=== PATIENT | female | born 1995 | race African-American/Black ===

== ENCOUNTER 2023-04-18 15:58 | Emergency (ER) | payer OTHER, SELFPAY ==
[2023-04-18 16:00] VITALS: BP 134/91
[2023-04-18 17:07] LABS: % Basophils 0.3 % (0-2); % Eosinophils 0.3 % (0-6); % Immature Granulocytes 0.3 % (0-0.5); % Lymphocytes 35.6 % (20.5-51.1); % Monocytes 7.6 % (1.7-9.3); % Neutrophils 55.9 % (42.2-75.2); Absolute Lymphocytes 2.4 10^3/uL (1.2-3.4); Absolute Monocytes 0.5 10^3/uL (0.1-0.6); Absolute Neutrophils 3.8 10^3/uL (1.4-6.5); Hematocrit 35.1 % (37.0-47.0); Hemoglobin 11.8 g/dL (12.0-16.0); Mean Corp Hgb Conc. 33.6 g/dL (33.0-37.0); Mean Corpuscular Hgb 28.1 pg (27.0-31.0); Mean Corpuscular Volume 83.6 fL (81.0-99.0); Mean Platelet Volume 10.1 fL (7.4-10.4); Nucleated Red Blood Cells % 0 %; Platelet Count 274 10^3/uL (130-400); Red Cell Dist. Width 14.3 % (11.5-14.5); White Blood Cell Count 6.8 10^3/uL (4.8-10.8)
[2023-04-18 17:17] LABS: HCG, Serum Qualitative Screen Negative
[2023-04-18 17:18] LABS: Chloride 108 mmol/L (98-107); Potassium 4.3 mmol/L (3.5-5.1); Sodium 139 mmol/L (135-145)
[2023-04-18 17:22] LABS: ALT (SGPT) 23 U/L (0-35); AST (SGOT) 45 U/L (14-36); Acetaminophen < 10 ug/ml (10-30); Albumin 4.4 g/dl (3.5-5.0); Alkaline Phosphatase 97 U/L (38-126); Blood Urea Nitrogen 22 mg/dl (7-17); Calcium 9.2 mg/dl (8.4-10.2); Carbon Dioxide 24 mmol/L (22-30); Glucose 86 mg/dl (70-99); Salicylate < 1.0 mg/dl (2.0-20.0); Total Bilirubin 0.6 mg/dl (0.2-1.3); Total Protein 7.4 g/dl (6.3-8.2); eGFR > 60.00
[2023-04-18 17:23] LABS: Alcohol None Detected
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
--- NOTE | 2023-04-18 18:40 | ED.GENMED ---
History of Present Illness
General
Chief Complaint: Substance Abuse
Source: patient and family
Exam Limitations: clinical condition
Time Seen by Provider: 04/18/23 16:17
Travel History
Have you had any contact with someone who has COVID-19?: No
Do you have any symptoms of coronavirus? Fever > 100 degrees, chills, cough, shortness of breath, sore throat, loss of taste or smell, muscle aches, or headache?: No
History of Present Illness
History of Present Illness:
27-year-old female who presents after dad found her not acting right. he suspects she used drugs. pt admits to using 'triple C's' and marijuana. Dad states she is also schizophrenic. He found to joints in containers. The patient states she was
trying to 'tripped balls'. She was try to get high and denies suicide ideation. She denies any other symptoms. She is followed by [facility] Rodriguez
Past History
Past History
ED Past Medical History: Psychiatric (Prior suicide attempt, bipolar, Paranoia, ADHD, ), Other (Substance abuse, UTI, Kidney stones, Anemia, ) and Other (Anemia)
ED Past Surgical History: None
Social History
Tobacco: Non-smoker
Alcohol: Binge drinker
Drug: Marijuana, Cocaine, Narcotics (Heroin) and IVDA
Personal: Single
Living: with family
Employment: Not employed
Family History
Family History: Other (Mother with breast cancer)
Phy Exam
Physical Exam
Physical Exam:
CONSTITUTIONAL Patient alert and oriented to person, place and time. Well-appearing. Vital signs reviewed. Appears intoxicated
HEAD atraumatic, normocephalic.
EYES eyelids normal to inspection, Pupils equally round and reactive to light, Extraocular muscles intact, Conjunctiva normal, Sclera normal.
NECK normal range of motion, Trachea midline, no jugular venous distention.
RESPIRATORY CHEST No respiratory distress noted, Chest expansion equal, Bilateral breath sounds clear.
CARDIOVASCULAR regular rate and rhythm, Heart sounds normal.
ABDOMEN abdomen nontender, Bowel sounds normal. No distention.
BACK normal inspection, no obvious deformities
UPPER EXTREMITY range of motion normal, Motor strength normal, no cyanosis, no edema.
LOWER EXTREMITY range of motion normal, Motor strength normal, no cyanosis, no edema.
NEURO Speech clear but appears mildly intoxicated, No focal motor deficits, Cranial Nerves intact to screening exam.
SKIN skin warm, dry, and normal in color.
Course
Orders/Labs/Results
Orders:
Orders
04/18/23 16:05
Crisis Consult Urgent
Reason for Consult: attempted suicide.
04/18/23 16:17
Urinalysis Reflex To Culture Urgent
Urine Drug Abuse Screen Urgent
04/18/23 16:18
Electrocardiogram (*1) Urgent
Reason for Study: Other
Other Reason for Exam: OD
EKG- Treatment ONCE
Test Result ONCE
04/18/23 16:51
Acetaminophen Urgent
Alcohol Urgent
Complete Blood Count/With Diff Urgent
Comprehensive Metabolic Panel Urgent
HCG, Serum Qualitative Screen Urgent
Salicylate Urgent
04/18/23 17:38
Crisis Consult Urgent
Reason for Consult: overdose
Abnormal Lab Results
04/18/23
16:51
Hgb 11.8 L g/dL
(12.0-16.0)
Hct 35.1 L %
(37.0-47.0)
Chloride 108 H mmol/L
(98-107)
BUN 22 H mg/dl
(7-17)
AST 45 H U/L
(14-36)
Salicylates < 1.0 L mg/dl
(2.0-20.0)
Acetaminophen < 10 L ug/ml
(10-30)
04/18/23 16:51
04/18/23 16:51
Vital Signs
Initial and Last Documented VS:
Initial Vital Signs
Temp Pulse Resp BP Pulse Ox
98.2 F 74 18 134/91 99
04/18/23 16:00 04/18/23 16:00 04/18/23 16:00 04/18/23 16:00 04/18/23 16:00
Last Documented Vital Signs
Temp Pulse Resp BP Pulse Ox
98.2 F 74 18 134/91 99
04/18/23 16:00 04/18/23 16:00 04/18/23 16:00 04/18/23 16:00 04/18/23 16:00
MDM/Problems Addressed
MDM/Problems Addressed:
Chloricidine OD. Marijuana abuse. Chronic schizophrenia
*Pulse Oximetry
Patient hypoxic: no
*EKG
Interpreted by ED Provider?: Yes
Interpretation: normal
Rate: normal
Rhythm: sinus
QRS Pattern: normal QRS
Ischemia: no ischemia
*Adjunct Instructor Interpretation
Rate: normal
Interpretation: normal
*Critical Care Note
Total Time (30-74mins, 75-104mins- exclusive of procedures): Not Applicable
Data Reviewed
Source: patient and family
Patient Management
Discussion with other providers: Other (Discussed with crisis staff who has ensured patient will have follow-up)
Escalation/DeEscalation of care consider admission/obs:
Observed. No significant tachycardia. EKG normal. No anion gap. Okay for discharge with dad will follow-up as outpatient. Patient was try to get high but question when she took these as she is not even tachycardic
ED Attending Note
-
Portions of this chart may have been created with voice recognition software.� Occasional wrong word or��sound alike� substitutions may have occurred due to the inherent limitations of voice recognition software.
Discharge Plan
Departure
Patient Disposition: Home (Routine Discharge)
Date of Disposition: 04/18/23
Time of Disposition: 19:27
Patient with high blood pressure during this ER visit?: No
Discharge Problem:
Substance abuse
Instructions: Drug Misuse and Addiction (DC)
Prescriptions:
No Action
benztropine 1 mg Tablet
1 mg PO DAILY
hydroxyzine pamoate 50 mg Capsule
50 mg PO BIDPRN PRN (Reason: ANTIHISTAMINE)
haloperidol 5 mg Tablet
5 mg PO HS
gabapentin 300 mg Capsule
300 mg PO BID
lamotrigine [Lamictal] 25 mg tablet
25 mg PO ONCE Qty: 30 1RF
Referrals:
Jg Solorzano DO [Family Provider] -
Activity Restrictions/Additional Instructions:
Please see your counselors and psychiatrist in the next 2 to 3 days. Please stop using illicit drugs. Return for change in mentation, weakness of any kind or any other concerns.
Interventions
Interventions:
*Risk Screen - Suicide Last Done: 04/18/23 16:00
*General Assessment Last Done: 04/18/23 16:00
*Neglect/Abuse Screening Last Done: 04/18/23 16:00
ED- Fall Risk Assessment Last Done: 04/18/23 16:49
*ED COVID-19 Vaccine History Last Done: 04/18/23 16:00
ED-Psychological Assessment Last Done: 04/18/23 16:49
[2023-04-18 19:50] VITALS: BP 121/81
== END 2023-04-18 19:50 | disposition home or self-care (01) ==
LOC: EMR 15:58
PROVIDERS: EMERGENCY PHYSICIAN Emergency Medicine; FAMILY PHYSICIAN Family Medicine
DX: F19.10 Other psychoactive substance abuse, uncomplicated (principal)
CPT/HCPCS: 99284; 80053; 80143; 80179; 82077; 84703; 85025; 93005

== ENCOUNTER 2023-05-10 19:27 | Emergency (ER) | payer OTHER, SELFPAY ==
[2023-05-10 19:30] VITALS: BP 144/124
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
[2023-05-10 22:02] VITALS: BP 134/97
== END 2023-05-10 22:09 | disposition home or self-care (01) ==
LOC: EMR 19:27
PROVIDERS: EMERGENCY PHYSICIAN Emergency Medicine
DX: T76.21XA Adult sexual abuse, suspected, initial encounter (principal); R10.2 Pelvic and perineal pain; R03.0 Elevated blood-pressure reading, without diagnosis of hypertension
CPT/HCPCS: 99283

== ENCOUNTER 2023-05-14 23:48 | Emergency (ER) | payer OTHER, SELFPAY ==
[2023-05-14 23:51] VITALS: BP 134/80
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
[2023-05-15 00:44] LABS: Urine Albumin Trace (Neg - Trace); Urine Bilirubin 1+ (Negative); Urine Character Clear (Clear); Urine Color Amber; Urine Glucose Negative (Negative); Urine Ketone Trace (Negative); Urine Leukocyte Trace (Negative); Urine Nitrite Negative (Negative); Urine Occult Blood Negative (Negative); Urine Urobilinogen 1+ (Neg - 1+)
[2023-05-15 00:50] LABS: Amphetamines Negative (Negative); Barbiturates Negative (Negative); Benzodiazepines Negative (Negative); Buprenorphine Negative (Negative); Cocaine Negative (Negative); Marijuana Positive (Negative); Methadone Negative (Negative); Methamphetamines Negative (Negative); Opiates Negative (Negative); Phencyclidine Negative (Negative); Tricyclic Antidepressants Negative (Negative)
[2023-05-15 00:53] LABS: Urine Squamous Cell >30 /LPF (Few)
[2023-05-15 00:55] LABS: ALT (SGPT) 33 U/L (0-35); AST (SGOT) 56 U/L (14-36); Albumin 4.7 g/dl (3.5-5.0); Alkaline Phosphatase 96 U/L (38-126); Blood Urea Nitrogen 19 mg/dl (7-17); Calcium 9.6 mg/dl (8.4-10.2); Carbon Dioxide 28 mmol/L (22-30); Chloride 103 mmol/L (98-107); Glucose 101 mg/dl (70-99); Potassium 3.5 mmol/L (3.5-5.1); Sodium 135 mmol/L (135-145); Total Bilirubin 0.7 mg/dl (0.2-1.3); Total Protein 7.9 g/dl (6.3-8.2); eGFR > 60.00
[2023-05-15 00:56] LABS: Alcohol None Detected; HCG, Serum Qualitative Screen Negative
[2023-05-15 00:58] LABS: Urine Bacteria Moderate (Negative)
[2023-05-15 01:04] LABS: COVID-19 Antigen Negative (Negative)
[2023-05-15 01:12] LABS: % Basophils 0.5 % (0-2); % Eosinophils 0.5 % (0-6); % Immature Granulocytes 1.1 % (0-0.5); % Lymphocytes 20.3 % (20.5-51.1); % Monocytes 6.1 % (1.7-9.3); % Neutrophils 71.5 % (42.2-75.2); Absolute Immature Granulocytes 0.1 10^3/uL (0-0.05); Absolute Lymphocytes 1.8 10^3/uL (1.2-3.4); Absolute Monocytes 0.5 10^3/uL (0.1-0.6); Absolute Neutrophils 6.3 10^3/uL (1.4-6.5); Hematocrit 35.7 % (37.0-47.0); Hemoglobin 11.9 g/dL (12.0-16.0); Mean Corp Hgb Conc. 33.3 g/dL (33.0-37.0); Mean Corpuscular Hgb 27.8 pg (27.0-31.0); Mean Corpuscular Volume 83.4 fL (81.0-99.0); Mean Platelet Volume 10.3 fL (7.4-10.4); Nucleated Red Blood Cells % 0 %; Platelet Count 287 10^3/uL (130-400); Red Blood Cell Count 4.28 10^6/uL (4.20-5.40); White Blood Cell Count 8.8 10^3/uL (4.8-10.8)
[2023-05-15] MEDS: SAPHRIS 2.5 MG SL (01:49)
[2023-05-15 01:54] VITALS: BMI 23.5
[2023-05-15] MEDS: SAPHRIS 5 MG SL (03:30)
[2023-05-15 10:18] VITALS: BP 121/93
--- NOTE | 2023-05-15 11:02 | W.PN.UPDATE ---
Update Note
Progress Note Update
27 y/o woman with history of schizoaffective disorder and extensive psychiatric treatment was in in ED on 302 awaiting placement. She was actively delusional and agitated and was given several doses of Saphris with good effect. I attempted to
complete an evaluation, but she was fast asleep. I will return later to try to interview her. As she has a history of Hoshimoto's Thyroiditis, I have ordered T3, T4 and TSH. Agree with treatment with Saphris.
[2023-05-15 12:06] LABS: Free T3 3.96 pg/ml (2.77-5.27)
[2023-05-15 12:19] LABS: TSH 1.41 uIU/ml (0.47-4.68)
[2023-05-15 13:54] VITALS: BP 112/75
[2023-05-15 16:14] VITALS: BP 122/90
== END 2023-05-15 16:18 ==
LOC: EMR 23:48
PROVIDERS: Clinical Nurse Specialist Family Health; EMERGENCY PHYSICIAN Emergency Medicine
DX: F20.9 Schizophrenia, unspecified (principal)
CPT/HCPCS: 99285; 80053; 80306; 81003; 81015; 82077; 84439; 84443; 84481; 84703; 85025; 87086; 87255; 87811

== ENCOUNTER 2023-06-09 15:02 | Emergency (ER) | payer OTHER, SELFPAY ==
[2023-06-09 15:03] VITALS: BP 126/86
--- NOTE | 2023-06-09 16:20 | ED.GENMED ---
History of Present Illness
General
Chief Complaint: Alcohol Problem
Source: patient
Exam Limitations: none
Time Seen by Provider: 06/09/23 15:34
Nursing documentation reviewed up to this point in time: agreed with
Travel History
Have you had any contact with someone who has COVID-19?: No
Do you have any symptoms of coronavirus? Fever > 100 degrees, chills, cough, shortness of breath, sore throat, loss of taste or smell, muscle aches, or headache?: No
History of Present Illness
History of Present Illness:
Patient presents to ED for medical evaluation, after she was found to be intoxicated, as she was walking out of [facility] by staff. Paramedics confirm that patient was a carrying a jug with alcohol in it, which has been discarded. Upon arrival, patient
is somnolent but easily arousable, and admits to having had alcohol this afternoon. However, denies suicidal or homicidal ideation. Denies headache. Denies chest pain. Denies abdominal pain. Denies recent illness. Denies use of any other
illicit medications. Patient would like her father to be contacted to be driven home.
Past History
Past History
ED Past Medical History: Psychiatric (Prior suicide attempt, bipolar, Paranoia, ADHD, Schizophrenia, Cutter, Overdose), Other (Substance abuse, UTI, Kidney stones, Anemia, Hashimotos Thyroiditis) and Other (Anemia)
ED Past Surgical History: None
Social History
Tobacco: Non-smoker
Alcohol: Binge drinker
Drug: Marijuana, Cocaine, Narcotics (Heroin) and IVDA
Personal: Single
Living: with family
Employment: Not employed
Family History
Family History: Other (Mother with breast cancer)
Review of Systems
Review of Systems
Allergies reviewed?: Yes
All Other Systems: ROS reviewed and negative except as documented in HPI and ROS
Constitutional: Reports no symptoms
EENT: Reports no symptoms
Respiratory: Reports no symptoms
Cardiac: Reports no symptoms
ABD/GI: Reports no symptoms
Musculoskeletal: Reports no symptoms
Skin: Reports no symptoms
Neurological: Reports no symptoms
Phy Exam
Physical Exam
Physical Exam:
Physical Exam
General: no apparent distress, not acutely ill. afebrile
Head: nc/at. eomi
Neck: supple. no meningeal signs.
Heart: s1/s2 regular rate and rhythm, no murmur. equal radial pulses.
Lungs: no acute respiratory distress. clear bilaterally
Abdomen: normal bowel sounds. not tender.
Neuro: alert and oriented. no focal neurological deficits
Skin: no rash
Psychiatric: well kept. interactive and cooperative
Extremities: no edema. no calf tenderness.
Scores
Withdrawal Assessment of Alcohol
Withdrawal Assessment Completed?: Yes
Nausea and Vomiting: No nausea and no vomiting
Tactile Disturbances: None
Tremor: No tremor
Auditory Disturbances: Not present
Paroxysmal Sweats: No sweat visible
Visual Disturbances: Not present
Anxiety: No anxiety, at ease
Headache, Fullness in Head: Not present
Agitation: Normal activity
Orientation and clouding of sensorium: Oriented and can do serial additions
Total CIWA Score: 0
Alcohol Withdrawal Medication Recommendation: Equal to MSAS Score 0-4. Monitor & re-assess q2hrs, NO MEDICATION NEEDED
Course
Vital Signs
Initial and Last Documented VS:
Initial Vital Signs
Temp Pulse Resp BP Pulse Ox
97.9 F 98 18 126/86 98
06/09/23 15:03 06/09/23 15:03 06/09/23 15:03 06/09/23 15:03 06/09/23 15:03
Last Documented Vital Signs
Temp Pulse Resp BP Pulse Ox
97.9 F 98 18 126/86 98
06/09/23 15:03 06/09/23 15:03 06/09/23 15:03 06/09/23 15:03 06/09/23 15:03
MDM/Problems Addressed
MDM/Problems Addressed:
Pt is alert/awake/oriented and walking with steady gait. Will be discharged home to the care of her father.
*Critical Care Note
Total Time (30-74mins, 75-104mins- exclusive of procedures): Not Applicable
ED Attending Note
-
Portions of this chart may have been created with voice recognition software.� Occasional wrong word or��sound alike� substitutions may have occurred due to the inherent limitations of voice recognition software.
Discharge Plan
Departure
Patient Disposition: Home (Routine Discharge)
Patient with high blood pressure during this ER visit?: Yes
Condition: Good
Discharge Problem:
Alcohol intoxication
Instructions: Alcohol Intoxication ED
Prescriptions:
No Action
Unobtainable
0
Referrals:
Jg Solorzano DO [Family Provider] -
Activity Restrictions/Additional Instructions:
As discussed, please follow-up with your primary care physician with any further concerns.
Interventions
Interventions:
*Risk Screen - Suicide Last Done: 06/09/23 17:09
*General Assessment Last Done: 06/09/23 15:03
*Neglect/Abuse Screening Last Done: 06/09/23 17:07
*ED COVID-19 Vaccine History Last Done: 06/09/23 15:03
*Nursing Disposition Last Done: 06/09/23 20:22
ED- Neurological Assessment Last Done: 06/09/23 17:04
ED-Psychological Assessment Last Done: 06/09/23 17:04
Discharge Date and Time
Discharge Date/Time: 06/09/23 20:23
Print Language: KOREAN
== END 2023-06-09 20:23 | disposition home or self-care (01) ==
LOC: EMR 15:02
PROVIDERS: EMERGENCY PHYSICIAN Emergency Medicine; FAMILY PHYSICIAN Family Medicine
DX: F10.929 Alcohol use, unspecified with intoxication, unspecified (principal); R03.0 Elevated blood-pressure reading, without diagnosis of hypertension
CPT/HCPCS: 99283

== ENCOUNTER 2023-06-26 13:42 | Emergency (ER) | payer OTHER, SELFPAY ==
--- NOTE | 2023-06-26 13:56 | ED.GENMED ---
History of Present Illness
General
Chief Complaint: Change in Mental Status
Time Seen by Provider: 06/26/23 13:55
Travel History
Have you had any contact with someone who has COVID-19?: No
Do you have any symptoms of coronavirus? Fever > 100 degrees, chills, cough, shortness of breath, sore throat, loss of taste or smell, muscle aches, or headache?: No
History of Present Illness
History of Present Illness:
HPI: The patient came in by ambulance. Apparently, the patient stopped a speedboat driver and asked for a ride. The speedboat driver noted increased bizarre behavior specimen and she got out of the car, ultimately EMS was called. She arrived here screaming with
nonsensical speech. She has a history of mental illness and substance abuse.
EXAM:
GENERAL: The patient has very bizarre affect continually stating a soft voice 'I love you, I love you'
HEENT: Moist oral mucosa
CARDIOVASCULAR: No murmurs, borderline tachycardic heart rate, regular rhythm, No chest wall tenderness
PULMONARY: No respiratory distress, breath sounds are clear and equal
ABDOMEN: Soft with no peritoneal signs, no tenderness
NEUROLOGIC: Good strength all extremities, no coordination deficits, she is not oriented�she tells me that she is 'in heaven'
PSYCHIATRIC: The patient has extremely poor insight and judgment, she has nonsensical speech
EXTREMITIES: Nontender, no edema, moves all extremities equally
SKIN: No rash, no lesions
TIME OF INITIAL ENCOUNTER: 2 PM
NUMBER AND COMPLEXITY OF PROBLEMS ADDRESSED AT THE ENCOUNTER
� Chronic conditions affecting care: Farzad thyroiditis, alcohol abuse, bipolar disorder/schizophrenia, substance abuse�patient denies
� Acute Exacerbation and/or Progression of Chronic Illness: This is an problem
� Differential Diagnosis includes: Exacerbation of mental illness, polysubstance abuse, viral syndrome, bacteremia
AMOUNT AND/OR COMPLEXITY OF DATA TO BE REVIEWED AND ANALYZED
� I performed an independent evaluation of and my interpretation is:
EKG:
CT:
X-rays:
Laboratory Studies: White count is normal, lactic is 7.3 (repeat is normal), bicarb initially was 14, creatinine is 1.1, UDS is positive for opiates, PCP, and marijuana, alcohol 21
Other:
� Review of other/old records: I reviewed records, the patient has been seen here by [facility] in the past
� Clinical information was obtained by an independent historian: I spoke to EMS
� Prescriptions/Medications Considered but not given:
� Further testing considered but not performed:
RISK OF COMPLICATIONS AND/OR MORBIDITY OR MORTALITY OF PATIENT MANAGEMENT
� Social determinants of health affecting care:
� Discussion with other providers: I initially briefly discussed case with hospitalist as the patient has lactic over 7 however the repeat lactic has cleared therefore no clear admission from a medical standpoint. I discussed
case with [facility] who does not feel the patient needs to be psychiatrically hospitalized�she currently denies SI on reassessment at around 5:30 PM.
� Escalation of care including admission/observation vs risk of discharge considered: This appears to be an exacerbation of psychiatric illness however the patient is febrile and has a lactic of 7. 3 and low bicarb. However she
is febrile but has a normal white blood cell count. The patient was given IV fluids aggressively and repeat lactic is now markedly improved. She does not strike me as being septic. I suspect the majority of her symptoms are related to mental
illness. I have asked [facility] to evaluate patient for evaluation. I spoke to [facility] after their evaluation and does not feel the patient is a threat to herself. As of 6:01 PM, the patient knows that she is at [facility] and has improved
insight. She does already have services through [facility]. Patient markedly improved but was given Zyprexa and Ativan earlier. We are waiting for ride to pick her up.
Past History
Past History
ED Past Medical History: Psychiatric (Prior suicide attempt, bipolar, Paranoia, ADHD, Schizophrenia, Cutter, Overdose), Other (Substance abuse, UTI, Kidney stones, Anemia, Hashimotos Thyroiditis) and Other (Anemia)
ED Past Surgical History: None
Social History
Tobacco: Non-smoker
Alcohol: Binge drinker
Drug: Marijuana, Cocaine, Narcotics (Heroin) and IVDA
Personal: Single
Living: with family
Employment: Not employed
Family History
Family History: Other (Mother with breast cancer)
Phy Exam
Physical Exam
Physical Exam:
See HPI
Course
Orders/Labs/Results
Orders:
Orders
06/26/23 13:53
Cardiac Monitoring- Treatment ONCE
IV Insert/Care/Rem.- Treatment PRN
Pulse Ox/spot Check [RESP] Urgent
Quantity: 1
06/26/23 13:58
Lorazepam [Ativan] 2 mg IM NOW STA
Olanzapine [Zyprexa] 10 mg IM NOW STA
06/26/23 13:59
Acetaminophen Urgent
Alcohol Urgent
Complete Blood Count/With Diff Urgent
Comprehensive Metabolic Panel Urgent
Salicylate Urgent
Lorazepam [Ativan] 2 mg .ROUTE .STK-MED ONE
Olanzapine [Zyprexa Zydis (Orally Disintegrating)] 10 mg .ROUTE .STK-MED ONE
06/26/23 14:04
Sterile Water [Sterile Water For Injection] 10 ml .ROUTE .STK-MED ONE
06/26/23 14:10
Restraints - Violent As Directed
Restraint Type-: Locked-4 point/4 rails
Apply From (date): 06/26/23
Apply from (time): 14:10
Remove (date): 06/26/23
Remove (time): 14:10
06/26/23 14:25
Lactic Acid Urgent
Blood Culture Urgent
KRZYSZTOF Source: Blood/Venous
Specimen Description:
06/26/23 14:27
Electrocardiogram (*1) Urgent
Reason for Study: QTc Monitoring
EKG- Treatment ONCE
06/26/23 14:41
Fentanyl, Urine Urgent
Urinalysis Reflex To Culture Urgent
Date Specimen was Collected: 06/26/23
Time Specimen was Collected: 14:36
Comment: ADDON
Urine Drug Abuse Screen Urgent
Date Specimen was Collected: 06/26/23
Time Specimen was Collected: 14:36
Blood Culture Q30M
KRZYSZTOF Source: Blood/Venous
Specimen Description:
06/26/23 14:52
0.9% Sodium Chloride 1000 ml [Nss] 1,000 ml IV BOLUS
0.9% Sodium Chloride 1000 ml [Nss] 1,000 ml IV BOLUS
0.9% Sodium Chloride 1000 ml [Nss] 1,000 ml IV BOLUS
06/26/23 14:55
1:1 Observation - Suicide/ Violent Behavior As Directed
06/26/23 15:12
Add On- LAB Urgent
Tests Added?: urinalysis reflex urine culture
06/26/23 15:19
Acetaminophen [Tylenol] 1,000 mg PO NOW STA
06/26/23 16:15
CR Chest Portable - 1 View Urgent
Comment:
Reason For Exam: fever
Reason Study Needs to be Portable: Patient Unstable
06/26/23 16:36
Lactic Acid Q4H
Comment: CANCEL 2nd LACTIC ACID IF 1st LACTIC ACID IS LESS THAN 2
06/26/23 17:10
Crisis Consult Urgent
Reason for Consult: psychosis
Abnormal Lab Results
06/26/23 06/26/23 06/26/23
13:59 14:25 14:41
RBC 3.97 L 10^6/uL
(4.20-5.40)
Hgb 11.2 L g/dL
(12.0-16.0)
Hct 33.9 L %
(37.0-47.0)
RDW 14.6 H %
(11.5-14.5)
MPV 10.5 H fL
(7.4-10.4)
Absolute Neuts (auto) 7.4 H 10^3/uL
(1.4-6.5)
Neutrophils % 81.8 H %
(42.2-75.2)
Lymphocytes % 13.1 L %
(20.5-51.1)
Chloride 108 H mmol/L
(98-107)
Carbon Dioxide 14 L* mmol/L
(22-30)
Creatinine 1.1 H mg/dL
(0.6-1.0)
Glucose 171 H mg/dl
(70-99)
Lactic Acid 7.3 H* mmol/L
(0.7-2.0)
AST 49 H U/L
(14-36)
Urine Ketones Trace A
(Negative)
Salicylates < 1.0 L mg/dl
(2.0-20.0)
Urine Opiates Screen Positive H
(Negative)
Acetaminophen < 10 L ug/ml
(10-30)
Ur Phencyclidine Scrn Positive H
(Negative)
U Marijuana (THC) Screen Positive H
(Negative)
06/26/23 13:59
06/26/23 13:59
Vital Signs
Initial and Last Documented VS:
Initial Vital Signs
Temp Pulse Resp BP Pulse Ox
102.1 F H 100 20 126/76 97
06/26/23 14:16 06/26/23 14:16 06/26/23 14:16 06/26/23 14:16 06/26/23 14:16
Last Documented Vital Signs
Temp Pulse Resp BP Pulse Ox
98.0 F 95 13 142/77 96
06/26/23 16:43 06/26/23 16:43 06/26/23 16:43 06/26/23 16:43 06/26/23 16:43
*Critical Care Note
Total Time (30-74mins, 75-104mins- exclusive of procedures): Not Applicable
ED Attending Note
-
Portions of this chart may have been created with voice recognition software.� Occasional wrong word or��sound alike� substitutions may have occurred due to the inherent limitations of voice recognition software.
Discharge Plan
Departure
Patient Disposition: Home (Routine Discharge)
Date of Disposition: 06/26/23
Time of Disposition: 17:14
Patient with high blood pressure during this ER visit?: Yes
Discharge Problem:
Psychosis
Instructions: Acute Psychosis (DC)
Prescriptions:
No Action
hydroxyzine pamoate 50 mg Capsule
50 mg PO BID
lamotrigine 25 mg Tablet
25 mg PO DAILY
benztropine 1 mg Tablet
1 mg PO DAILY
metformin 500 mg tablet extended release 24 hr
500 mg PO DAILY
olanzapine 20 mg Tablet
20 mg PO DAILY
Vraylar 3 mg Capsule
3 mg PO DAILY
Referrals:
UNKNOWN - PT NOT,INTERVIEWE [Family Provider] -
Activity Restrictions/Additional Instructions:
Follow-up with your psychiatrist/[facility]. Return here if worse. No driving today.
Interventions
Interventions:
*Risk Screen - Suicide Last Done: 06/26/23 15:42
*General Assessment Last Done: 06/26/23 15:42
*Neglect/Abuse Screening Last Done: 06/26/23 15:42
*ED COVID-19 Vaccine History Last Done: 06/26/23 15:42
ED- Neurological Assessment Last Done: 06/26/23 16:59
Discharge Date and Time
Print Language: PORTUGUESE
[2023-06-26] MEDS: ATIVAN 2 MG IM (14:03)
[2023-06-26] MEDS: ZYPREXA 10 MG IM (14:05)
[2023-06-26 14:06] LABS: % Basophils 0.3 % (0-2); % Eosinophils 0.2 % (0-6); % Immature Granulocytes 0.2 % (0-0.5); % Lymphocytes 13.1 % (20.5-51.1); % Monocytes 4.4 % (1.7-9.3); % Neutrophils 81.8 % (42.2-75.2); Absolute Lymphocytes 1.2 10^3/uL (1.2-3.4); Absolute Monocytes 0.4 10^3/uL (0.1-0.6); Absolute Neutrophils 7.4 10^3/uL (1.4-6.5); Hematocrit 33.9 % (37.0-47.0); Hemoglobin 11.2 g/dL (12.0-16.0); Mean Corpuscular Hgb 28.2 pg (27.0-31.0); Mean Corpuscular Volume 85.4 fL (81.0-99.0); Mean Platelet Volume 10.5 fL (7.4-10.4); Nucleated Red Blood Cells % 0 %; Platelet Count 291 10^3/uL (130-400); Red Blood Cell Count 3.97 10^6/uL (4.20-5.40); Red Cell Dist. Width 14.6 % (11.5-14.5)
[2023-06-26 14:16] VITALS: BP 126/76
[2023-06-26 14:45] LABS: ALT (SGPT) 28 U/L (0-35); AST (SGOT) 49 U/L (14-36); Acetaminophen < 10 ug/ml (10-30); Albumin 4.8 g/dl (3.5-5.0); Alcohol 21 mg/dl; Alkaline Phosphatase 85 U/L (38-126); Blood Urea Nitrogen 17 mg/dl (7-17); Calcium 9.9 mg/dl (8.4-10.2); Carbon Dioxide 14 mmol/L (22-30); Chloride 108 mmol/L (98-107); Glucose 171 mg/dl (70-99); Potassium 3.7 mmol/L (3.5-5.1); Salicylate < 1.0 mg/dl (2.0-20.0); Sodium 138 mmol/L (135-145); Total Bilirubin 0.4 mg/dl (0.2-1.3); Total Protein 7.9 g/dl (6.3-8.2); eGFR > 60.00
[2023-06-26 14:51] LABS: Lactic Acid 7.3 mmol/L (0.7-2.0)
[2023-06-26 15:07] LABS: Marijuana Positive (Negative); Opiates Positive (Negative)
[2023-06-26 15:08] LABS: Amphetamines Negative (Negative); Barbiturates Negative (Negative); Benzodiazepines Negative (Negative); Buprenorphine Negative (Negative); Cocaine Negative (Negative); Methadone Negative (Negative); Methamphetamines Negative (Negative); Phencyclidine Positive (Negative); Tricyclic Antidepressants Negative (Negative)
[2023-06-26] MEDS: NSS 1000 IV ×3 (15:11→15:24)
[2023-06-26 15:21] LABS: Fentanyl, Urine Negative (Negative); Urine Albumin Trace (Neg - Trace); Urine Bilirubin Negative (Negative); Urine Character Clear (Clear); Urine Color Yellow; Urine Glucose Negative (Negative); Urine Ketone Trace (Negative); Urine Leukocyte Negative (Negative); Urine Nitrite Negative (Negative); Urine Occult Blood Negative (Negative); Urine Specific Gravity 1.025 (<1.030); Urine Urobilinogen Negative (Neg - 1+)
--- NOTE | 2023-06-26 15:33 | PHANOTE ---
06/26/2023, med rec tech, pt. obtunded at time of interview; used pharmacy fill records and [facility] records from 05/04/2023 to compile a list of pt.'s meds.
[2023-06-26] MEDS: TYLENOL 1000 MG PO (15:37)
[2023-06-26 15:41] VITALS: BP 133/85
--- NOTE | 2023-06-26 15:50 | EDRN ---
Unable to do a proper MSAS on patient. Patient has a history of schizophrenia and is actively hallucinating. Patient also came to the hospital with a fever and tachycardia. Assessment would show a false positive. Will monitor patient closely.
[2023-06-26 16:00] VITALS: BP 142/77
--- NOTE | 2023-06-26 16:22 | EDRN ---
Patient removed from restraints at 1600.
[2023-06-26 16:43] VITALS: BP 142/77
[2023-06-26 16:58] LABS: Lactic Acid 0.9 mmol/L (0.7-2.0)
[2023-06-26 17:00] VITALS: BP 95/77
[2023-06-26 18:00] VITALS: BP 119/85
== END 2023-06-26 18:41 | disposition home or self-care (01) ==
LOC: EMR 13:42
PROVIDERS: EMERGENCY PHYSICIAN Emergency Medicine
DX: F23 Brief psychotic disorder (principal); F31.9 Bipolar disorder, unspecified; F22 Delusional disorders; F90.9 Attention-deficit hyperactivity disorder, unspecified type; D64.9 Anemia, unspecified; E06.3 Autoimmune thyroiditis; Z80.3 Family history of malignant neoplasm of breast; Z87.440 Personal history of urinary (tract) infections; Z87.442 Personal history of urinary calculi; Z91.51 Personal history of suicidal behavior
CPT/HCPCS: 99283; 96372; 96360; 71045; 76700; 80053; 80143; 80179; 80306; 80307; 81003; 82077; 82962; 83605; 85025; 87040; 93005; J2358

== ENCOUNTER 2023-06-26 22:08 | Emergency (ER) | payer OTHER, SELFPAY ==
[2023-06-26 22:16] VITALS: BP 128/91
[2023-06-27 00:02] LABS: Glucose - Point of Care 76 mg/dl (70-99)
[2023-06-27 05:10] LABS: ALT (SGPT) 72 U/L (0-35); AST (SGOT) 329 U/L (14-36); Acetaminophen < 10 ug/ml (10-30); Albumin 4.3 g/dl (3.5-5.0); Alkaline Phosphatase 85 U/L (38-126); Blood Urea Nitrogen 11 mg/dl (7-17); Calcium 9.1 mg/dl (8.4-10.2); Carbon Dioxide 23 mmol/L (22-30); Chloride 109 mmol/L (98-107); Glucose 79 mg/dl (70-99); Potassium 3.5 mmol/L (3.5-5.1); Salicylate < 1.0 mg/dl (2.0-20.0); Sodium 136 mmol/L (135-145); Total Bilirubin 0.8 mg/dl (0.2-1.3); Total Protein 7.2 g/dl (6.3-8.2); eGFR > 60.00
[2023-06-27 05:17] LABS: Alcohol None Detected
--- NOTE | 2023-06-27 05:48 | ED.GENMED ---
History of Present Illness
<Elenita Kumar DO - Last Filed: 06/27/23 06:12>
General
Chief Complaint: Psychiatric Problem
Source: patient, ambulance crew and previous hospital records (ED visit from yesterday evening)
Exam Limitations: none
Time Seen by Provider: 06/27/23 00:40
Travel History
Have you had any contact with someone who has COVID-19?: Unable to Answer
Do you have any symptoms of coronavirus? Fever > 100 degrees, chills, cough, shortness of breath, sore throat, loss of taste or smell, muscle aches, or headache?: Unable to Answer
History of Present Illness
History of Present Illness:
This is a 27-year-old woman who has history of psychiatric disorder follows with [facility] services. She was evaluated in this ED yesterday afternoon evening when she was brought into the ED by EMS after bystanders noted bizarre
behavior. Initially upon arrival to the ED yesterday she was screaming with nonsensical speech. Sedated with Zyprexa and Ativan IM.
Initial chemistries were concerning for significant acidosis and lactic acidosis, patient noted to be febrile at 102 �F. Aggressive treated with IV fluids and repeated labs were markedly improved/normalized.
Alcohol level at that time was low at 21. UDS positive for opiates, PCP and THC.
She was evaluated by the [facility] and found to be stable for discharge to home, no indication for acute hospitalization.
She was discharged yesterday evening and is brought back to the ED via EMS when she was found wandering about town.
According to EMS patient has remained cooperative, once positioned onto the stretcher she has closed her eyes and is refusing to open her eyes, refusing to speak.
There appears no evidence of trauma.
Past History
<Elenita Kumar DO - Last Filed: 06/27/23 06:12>
Past History
ED Past Medical History: Psychiatric (Prior suicide attempt, bipolar, Paranoia, ADHD, Schizophrenia, Cutter, Overdose), Other (Substance abuse, UTI, Kidney stones, Anemia, Hashimotos Thyroiditis) and Other (Anemia)
ED Past Surgical History: None
Social History
Tobacco: Non-smoker
Alcohol: Binge drinker
Drug: Marijuana, Cocaine, Narcotics (Heroin) and IVDA
Personal: Single
Living: with family
Employment: Not employed
Family History
Family History: Other (Mother with breast cancer)
Phy Exam
<Elenita Kumar DO - Last Filed: 06/27/23 06:12>
Physical Exam
Physical Exam:
GENERAL: 27-year-old female appears her stated age, now awake and alert, cooperative, offers no complaints. Sitting at edge of stretcher.
EYE: pupils equal and reactive. anicteric. The head is normocephalic, atraumatic.
NECK: Supple, nontender, no meningismus, no significant adenopathy.
ENT: oral mucosa is moist. No rhinorrhea.
CARDIAC: Regular rate and rhythm. no murmur.
LUNGS: Clear breath sounds bilaterally, no acute respiratory distress, no wheezes/rales/rhonchi
ABDOMEN: Soft, nondistended, without focal tenderness, no r/g, no cvat. normoactive BS.
NEUROLOGICAL: Alert and oriented x3, no focal neuro deficits. Gait is palacios and steady.
SKIN: Warm and dry, normal color, skin intact. No rash.
MUSCULOSKELETAL: No C/C/E. peripheral pulses are full and equal b/l. No palpable tenderness.
PSYCH: Significantly blunted affect, somewhat guarded. Cooperative.
Course
<Elenita Kumar DO - Last Filed: 06/27/23 06:12>
Orders/Labs/Results
Orders:
Orders
06/27/23 04:41
Acetaminophen Urgent
Alcohol Urgent
Comprehensive Metabolic Panel Urgent
Salicylate Urgent
06/27/23 06:05
US Abdomen Complete/Upper Urgent
Comment:
Reason For Exam: elevated LFT's
06/27/23 06:06
PSYCHIATRY CONSULT Urgent
Consulting Provider: Arjun Myrick
Was physician already notified: Yes
Abnormal Lab Results
06/27/23
04:41
Chloride 109 H mmol/L
(98-107)
AST 329 H U/L
(14-36)
ALT 72 H U/L
(0-35)
Salicylates < 1.0 L mg/dl
(2.0-20.0)
Acetaminophen < 10 L ug/ml
(10-30)
06/27/23 04:41
Vital Signs
Initial and Last Documented VS:
Initial Vital Signs
Temp Pulse Resp BP Pulse Ox
98.0 F 92 16 128/91 96
06/26/23 22:16 06/26/23 22:16 06/26/23 22:16 06/26/23 22:16 06/26/23 22:16
Last Documented Vital Signs
Temp Pulse Resp BP Pulse Ox
99.4 F 81 16 117/79 100
06/27/23 07:36 06/27/23 07:36 06/27/23 07:36 06/27/23 07:36 06/27/23 07:36
Datlt;Mac Tsai DO - Last Filed: 06/28/23 06:00>
Orders/Labs/Results
Orders:
Orders
06/27/23 04:41
Acetaminophen Urgent
Alcohol Urgent
Comprehensive Metabolic Panel Urgent
Salicylate Urgent
06/27/23 06:05
US Abdomen Complete/Upper Urgent
Comment:
Reason For Exam: elevated LFT's
06/27/23 06:06
PSYCHIATRY CONSULT Urgent
Consulting Provider: Arjun Myrick
Was physician already notified: Yes
Abnormal Lab Results
06/27/23
04:41
Chloride 109 H mmol/L
(98-107)
AST 329 H U/L
(14-36)
ALT 72 H U/L
(0-35)
Salicylates < 1.0 L mg/dl
(2.0-20.0)
Acetaminophen < 10 L ug/ml
(10-30)
06/27/23 04:41
Vital Signs
Initial and Last Documented VS:
Initial Vital Signs
Temp Pulse Resp BP Pulse Ox
98.0 F 92 16 128/91 96
06/26/23 22:16 06/26/23 22:16 06/26/23 22:16 06/26/23 22:16 06/26/23 22:16
Last Documented Vital Signs
Temp Pulse Resp BP Pulse Ox
99.4 F 81 16 117/79 100
06/27/23 07:36 06/27/23 07:36 06/27/23 07:36 06/27/23 07:36 06/27/23 07:36
<Elenita Kumar, - Last Filed: 06/27/23 06:12>
MDM/Problems Addressed
Differential Diagnosis Includes:
Patient returns via EMS after apparently wandering about the streets in [facility].
Noted to be acutely agitated and psychotic yesterday afternoon requiring IM Zyprexa and Ativan. She was also noted to be febrile yesterday with initial labs concerning for significant lactic acidosis which cleared/normalized after IV fluids
She remains afebrile.
Offers no complaints.
There is significant concern for ongoing psychiatric issues, disorganized thought processes versus substance use disorder causing bizarre behavior prompting repeated EMS notification and return to the ED.
Will repeat chemistries, reassess alcohol, salicylate and acetaminophen.
Thus far patient remains cooperative and has not required sedation.
Will plan for psychiatrist consult in the a.m.
Chronic conditions affecting care: Psychiatric illness
<Mac Voss Eulalio, DO - Last Filed: 06/28/23 06:00>
*Critical Care Note
Total Time (30-74mins, 75-104mins- exclusive of procedures): Not Applicable
<Elenita Kumar DO - Last Filed: 06/27/23 06:12>
Update Note
Update Note:
Labs reveal moderately elevated AST of 329, ALT is trended up mildly to 72. Normal bilirubin and alkaline phosphatase. Chemistries are otherwise unremarkable with no acidosis. She remains afebrile and continues to deny abdominal pain.
Acetaminophen and salicylates are again negative. EtOH is negative.
Due to uptrend in LFTs and reported fever yesterday we will check abdominal ultrasound assess for potential cholecystitis/cholelithiasis.
Will also plan for psychiatrist consult this morning.
Patient remains cooperative.
<Mac Voss Eulalio DO - Last Filed: 06/28/23 06:00>
Update Note
Update Note:
Labs reveal moderately elevated AST of 329, ALT is trended up mildly to 72. Normal bilirubin and alkaline phosphatase. Chemistries are otherwise unremarkable with no acidosis. She remains afebrile and continues to deny abdominal pain.
Acetaminophen and salicylates are again negative. EtOH is negative.
Due to uptrend in LFTs and reported fever yesterday we will check abdominal ultrasound assess for potential cholecystitis/cholelithiasis.
Will also plan for psychiatrist consult this morning.
Patient remains cooperative.
ED Attending Note
<Elenita Kumar, DO - Last Filed: 06/27/23 06:12>
-
Portions of this chart may have been created with voice recognition software.� Occasional wrong word or��sound alike� substitutions may have occurred due to the inherent limitations of voice recognition software.
<Mac Tsai, DO - Last Filed: 06/28/23 06:00>
ED Attending Note
ED Attending Note:
I spoke to Dr. Love outpatient management.
Discharge Plan
Departure
Patient Disposition: Home (Routine Discharge)
Date of Disposition: 06/27/23
Time of Disposition: 12:55
Patient with high blood pressure during this ER visit?: Yes
Discharge Problem:
Mental health disorder
Prescriptions:
No Action
hydroxyzine pamoate 50 mg Capsule
50 mg PO BID
lamotrigine 25 mg Tablet
25 mg PO DAILY
benztropine 1 mg Tablet
1 mg PO DAILY
metformin 500 mg tablet extended release 24 hr
500 mg PO DAILY
olanzapine 20 mg Tablet
20 mg PO DAILY
Vraylar 3 mg Capsule
3 mg PO DAILY
Referrals:
UNKNOWN - PT NOT,INTERVIEWE [Family Provider] -
Activity Restrictions/Additional Instructions:
You were evaluated by crisis and by psychiatry�the psychiatrist, Dr. Luna, recommends continued outpatient management. Return here if worse. Continue your medication.
Interventions
Interventions:
*Risk Screen - Suicide Last Done: 06/26/23 23:30
*General Assessment Last Done: 06/26/23 22:16
*Neglect/Abuse Screening Last Done: 06/26/23 23:30
ED- Fall Risk Assessment Last Done: 06/26/23 22:57
*ED COVID-19 Vaccine History Last Done: 06/26/23 22:16
*Nursing Disposition Last Done: 06/27/23 13:01
ED-Psychological Assessment Last Done: 06/27/23 07:37
Discharge Date and Time
Discharge Date/Time: 06/27/23 13:02
Print Language: PERSIAN
[2023-06-27 07:36] VITALS: BP 117/79
--- NOTE | 2023-06-27 11:00 | CS.PSYCHR ---
Consult Summary - Psychiatry
-
Pt 27 yo female with history of substance use and Schizoaffective d/o, brought in by EMS after reportedly found wandering around town. Pt had been brought in yesterday 06/25, after asking someone for ride and acting in bizarre/disorganized manner.
Pt was given Zyprexa and Ativan yesterday. UDS 06/25 was positive for Opiate, PCP, THC. Today, pt is alert, making eye contact, asking to be allowed to call her father. Pt denies feeling unsafe, states she would like to return home. Pt shows no
overt signs of acute psychosis or mood disturbance, no agitation.
Psych Hx: followed by [facility], hx of PHP at [facility], past hx of self injury 2016
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
PMH: UTI, Kidney stones, Anemia, Farzad's Thyroiditis, Anemia
SH: single, living with family, unemployed
MSE: alert, oriented, calm, guarded. Limited response to questions, repeatedly asking to call her father. No agitation, no signs of acute mood disturbance or psychosis
Imp: Schizoaffective d/o by hx, appears to be at or near baseline mental state
Polysubstance use- opiate, THC, alcohol, + for PCP(could be false positive from psychotropic meds)
Rec: Return to Outpatient treatment; has intensive psychiatric follow-up with [facility]
--- NOTE | 2023-06-27 13:01 | EDRN ---
Discharge instructions reviewed with patient and her ACT assistant case manager. Verbalized understanding.
== END 2023-06-27 13:02 | disposition home or self-care (01) ==
LOC: EMR 22:08
PROVIDERS: CONSULT PHYSICIAN Psychiatry & Neurology Psychiatry; EMERGENCY PHYSICIAN Emergency Medicine
DX: F31.9 Bipolar disorder, unspecified (principal); F22 Delusional disorders; F90.9 Attention-deficit hyperactivity disorder, unspecified type; D64.9 Anemia, unspecified; E06.3 Autoimmune thyroiditis; F20.9 Schizophrenia, unspecified; Z80.3 Family history of malignant neoplasm of breast; Z87.440 Personal history of urinary (tract) infections; Z87.442 Personal history of urinary calculi; Z91.51 Personal history of suicidal behavior
CPT/HCPCS: 99284; 76700; 80053; 80143; 80179; 82077; 82962

== ENCOUNTER 2023-07-05 20:56 | Emergency (ER) | payer OTHER, SELFPAY ==
[2023-07-05 21:00] VITALS: BP 126/93
[2023-07-05 21:03] VITALS: BP 126/93
[2023-07-05 21:21] VITALS: BMI 29.7
--- NOTE | 2023-07-05 21:41 | ED.GENMED ---
History of Present Illness
General
Chief Complaint: Overdose Unintentional
Source: patient
Exam Limitations: none
Time Seen by Provider: 07/05/23 21:07
Nursing documentation reviewed up to this point in time: agreed with
Travel History
Have you had any contact with someone who has COVID-19?: No
Do you have any symptoms of coronavirus? Fever > 100 degrees, chills, cough, shortness of breath, sore throat, loss of taste or smell, muscle aches, or headache?: No
History of Present Illness
History of Present Illness:
Patient with history of bipolar disorder, drug abuse, and alcoholism, presents to ED after she was found inside the house, unresponsive by her father who called 911. When medics arrived at scene, patient was found to be in respiratory distress and
was given Narcan 4 mg which woke the patient up immediately. Patient complained of nausea immediately afterwards, and was given Zofran with relief in symptoms. Upon arrival, patient is alert, awake, and oriented, and without any distress. Patient
admits to having used 1 bag of heroin along with Percocet tonight, as she is already scheduled for an outpatient evaluation/treatment tomorrow morning. Denies suicidal ideation. Denies use of any other illicit medications.
Past History
Past History
ED Past Medical History: Psychiatric (Prior suicide attempt, bipolar, Paranoia, ADHD, Schizophrenia, Cutter, Overdose), Other (Substance abuse, UTI, Kidney stones, Anemia, Hashimotos Thyroiditis) and Other (Anemia)
ED Past Surgical History: None
Social History
Tobacco: Non-smoker
Alcohol: Binge drinker
Drug: Marijuana, Cocaine, Narcotics (Heroin) and IVDA
Personal: Single
Living: with family
Employment: Not employed
Family History
Family History: Other (Mother with breast cancer)
Review of Systems
Review of Systems
Allergies reviewed?: Yes
All Other Systems: ROS reviewed and negative except as documented in HPI and ROS
Constitutional: Reports no symptoms; Denies fever or chills
EENT: Reports no symptoms
Respiratory: Reports no symptoms
Cardiac: Reports no symptoms
ABD/GI: Reports nausea
Musculoskeletal: Reports no symptoms
Skin: Reports no symptoms
Neurological: Reports no symptoms
Psychiatric: Denies suicidal
Phy Exam
Physical Exam
Physical Exam:
Physical Exam
General: no apparent distress, not acutely ill. afebrile
Head: nc/at. eomi. perrla
Neck: supple. no meningeal signs.
Heart: tachycardic, no murmur. equal radial pulses.
Lungs: no acute respiratory distress. clear bilaterally
Abdomen: normal bowel sounds. not tender.
Neuro: alert and oriented. no focal neurological deficits
Skin: no rash
Psychiatric: well kept. interactive and cooperative
Extremities: no edema. no calf tenderness.
Course
Vital Signs
Initial and Last Documented VS:
Initial Vital Signs
Temp Pulse Resp BP Pulse Ox
97.7 F 96 14 126/93 99
07/05/23 21:00 07/05/23 21:00 07/05/23 21:00 07/05/23 21:00 07/05/23 21:00
Last Documented Vital Signs
Temp Pulse Resp BP Pulse Ox
97.7 F 109 28 120/78 98
07/05/23 21:00 07/05/23 22:15 07/05/23 22:15 07/05/23 22:00 07/05/23 23:59
MDM/Problems Addressed
MDM/Problems Addressed:
Patient remains alert, awake, and oriented, and hemodynamically stable during observation. Patient will be discharged home in stable condition, to the care of her father who will observe the patient closely. Patient will follow-up with outpatient
evaluation/treatment tomorrow morning, as scheduled.
*Critical Care Note
Total Time (30-74mins, 75-104mins- exclusive of procedures): Not Applicable
ED Attending Note
-
Portions of this chart may have been created with voice recognition software.� Occasional wrong word or��sound alike� substitutions may have occurred due to the inherent limitations of voice recognition software.
Discharge Plan
Departure
Patient Disposition: Home (Routine Discharge)
Date of Disposition: 07/05/23
Time of Disposition: 22:49
Patient with high blood pressure during this ER visit?: Yes
Discharge Problem:
Opioid overdose
Instructions: Opioid Overdose (DC)
Prescriptions:
New
naloxone [Narcan] 4 mg/actuation spray,non-aerosol
4 mg intranasal DIRECTED Qty: 2 0RF
No Action
metformin 500 mg tablet extended release 24 hr
500 mg PO DAILY
olanzapine 20 mg Tablet
20 mg PO DAILY
Referrals:
Jg Solorzano DO [Family Provider] -
Activity Restrictions/Additional Instructions:
As discussed, please follow-up with outpatient treatment team tomorrow morning, for further evaluation and treatment.
Interventions
Interventions:
*Risk Screen - Suicide Last Done: 07/05/23 21:00
*General Assessment Last Done: 07/05/23 21:00
*Neglect/Abuse Screening Last Done: 07/05/23 21:00
ED- Fall Risk Assessment Last Done: 07/05/23 21:00
*ED COVID-19 Vaccine History Last Done: 07/05/23 21:00
*Nursing Disposition Last Done: 07/05/23 23:59
ED- Cardiac Assessment Last Done: 07/05/23 21:14
ED- Neurological Assessment Last Done: 07/05/23 21:22
ED-Psychological Assessment Last Done: 07/05/23 21:14
ED- Pulmonary Assessment Last Done: 07/05/23 21:22
Discharge Date and Time
Discharge Date/Time: 07/05/23 23:00
Print Language: CITIZEN [place]
[2023-07-05 22:00] VITALS: BP 120/78
== END 2023-07-05 23:00 | disposition home or self-care (01) ==
LOC: EMR 20:56
PROVIDERS: EMERGENCY PHYSICIAN Emergency Medicine; FAMILY PHYSICIAN Family Medicine
DX: T40.2X1A Poisoning by other opioids, accidental (unintentional), initial encounter (principal); F31.9 Bipolar disorder, unspecified; R03.0 Elevated blood-pressure reading, without diagnosis of hypertension
CPT/HCPCS: 99282

== ENCOUNTER 2023-11-27 22:32 | Emergency (ER) | payer OTHER, SELFPAY ==
[2023-11-27 22:33] VITALS: BP 121/86
--- NOTE | 2023-11-27 22:49 | ED.GENMED ---
History of Present Illness
General
Chief Complaint: Crisis Evaluation
Source: patient and police
Exam Limitations: none
Time Seen by Provider: 11/27/23 22:41
History of Present Illness
History of Present Illness:
See MDM
Past History
Past History
ED Past Medical History: Psychiatric (Prior suicide attempt, bipolar, Paranoia, ADHD, Schizophrenia, Cutter, Overdose), Other (Substance abuse, UTI, Kidney stones, Anemia, Hashimotos Thyroiditis) and Other (Anemia)
ED Past Surgical History: None
Social History
Tobacco: Non-smoker
Alcohol: Binge drinker
Drug: Marijuana, Cocaine, Narcotics (Heroin) and IVDA
Personal: Single
Living: with family
Employment: Not employed
Family History
Family History: Other (Mother with breast cancer)
Phy Exam
Physical Exam
Physical Exam:
See MDM
Course
Orders/Labs/Results
Orders:
Orders
11/27/23 22:48
Crisis Consult Urgent
Reason for Consult: 302
Haloperidol Lactate [Haldol] 5 mg IM NOW STA
Lorazepam [Ativan] 2 mg IV NOW STA
Test Result ONCE
11/27/23 23:00
One to One Observation - Suicide/Violent [1:1 Observation - Suicide/ Violent Behavior] As Directed
11/27/23 23:07
Complete Blood Count/With Diff Urgent
Comprehensive Metabolic Panel Urgent
Fentanyl, Urine Urgent
HCG, Serum Qualitative Screen Urgent
Urinalysis Reflex To Culture Urgent
Date Specimen was Collected: 11/27/23
Time Specimen was Collected: 23:02
Urine Drug Abuse Screen Urgent
Date Specimen was Collected: 11/27/23
Time Specimen was Collected: 23:02
Urine Microscopic Reflex Cult Urgent
Urine Culture Urgent
[id number] Source: U
Specimen Description:
Date Specimen was Collected: 11/27/23
Time Specimen was Collected: 23:02
11/28/23 00:03
Ketorolac [Toradol] 30 mg IM NOW STA
Abnormal Lab Results
11/27/23
23:07
Hgb 11.5 L g/dL
(12.0-16.0)
Hct 35.1 L %
(37.0-47.0)
MCV 80.3 L fL
(81.0-99.0)
MCH 26.3 L pg
(27.0-31.0)
MCHC 32.8 L g/dL
(33.0-37.0)
MPV 10.5 H fL
(7.4-10.4)
BUN 20 H mg/dl
(7-17)
Glucose 108 H mg/dl
(70-99)
AST 43 H U/L
(14-36)
Urine Ketones Trace A
(Negative)
Ur Occult Blood Reflex 4+ A
(Negative)
Urine Bilirubin 1+ A
(Negative)
Leukocyte Esterase Rfl 2+ A
(Negative)
Urine RBC >100 A /HPF
(0-2)
Urine WBC (Reflex) 11-15 A /HPF
(0-5)
Urine Bacteria (Reflex) Few A
(Negative)
Ur Buprenorphine Positive H
(Negative)
11/27/23 23:07
11/27/23 23:07
Vital Signs
Initial and Last Documented VS:
Initial Vital Signs
Temp Pulse Resp BP Pulse Ox
98 F 122 14 121/86 95
11/27/23 22:33 11/27/23 22:33 11/27/23 22:33 11/27/23 22:33 11/27/23 22:33
Last Documented Vital Signs
Temp Pulse Resp BP Pulse Ox
98 F 122 14 121/86 95
11/27/23 22:33 11/27/23 22:33 11/27/23 22:33 11/27/23 22:33 11/27/23 22:33
MDM/Problems Addressed
Differential Diagnosis Includes:
HPI and MDM Narrative:
28-year-old female presenting in police custody for a 302. Patient was brought in by her father earlier in the day but she left screaming because she did not want to be evaluated. The 302 was eventually petitioned by her father and police were
called to pick her up to bring her to the hospital. The 302 indicated that she has had paranoia, medication noncompliance and reckless behavior. Patient does acknowledge that she has not been taking her medicine but she has poor insight to her
mental health. She is unsure of her diagnoses and unsure of the medication she should be taking. On exam, patient appears guarded and paranoid. Patient placed on a one-to-one and will provide Haldol and Ativan
Physical exam
General: Fidgety, guarded, sitting in bed
HEENT: protecting airway
Neck: supple
CV: No evidence of cyanosis
Resp: No accessory muscle use
Abd: Non-distended
Extremities: No deformities
Neuro: alert
Psych: Flat affect, guarded
Skin: Intact
Problems Addressed including Acute and Chronic Conditions affecting care:
1. Acute psychosis
Acuity: acute
Prognosis: unstable
Details: Likely in the setting of medication noncompliance. Will provide Haldol and Ativan. Patient currently on a 302. Will perform medical clearance testing
Updates
10:45 PM Case discussed with crisis team who indicated that the 302 was delegated and upheld
12 AM patient asking for pain medicine due to pain all over. Will give dose of Toradol. At this time blood work without clinical significance. Urine appears contaminated. At this time, patient is medically cleared
Differential Diagnosis (but not limited to): Medication noncompliance, schizophrenia
Testing considered: CT head but she has no acute neurodeficits
Drug therapy (if applicable): OTC meds, please see d/c instruction regarding Rx drugs
Amount and/or Complexity of Data Reviewed
Clinical info obtained from: Patient
External data reviewed: N/A
Labs I independently reviewed (but not limited to): White blood cell count normal, urinalysis contaminated
Radiology: N/A
Pulse Ox: not hypoxic
EKG independently reviewed: N/A
Automobile Carpets Molder: N/A
Critical Care: N/A
Risk of Complication:
Social Determinants of health: Good social support
Discussed with other providers: Crisis
Escalation of Care includes Admit/Obs: Given the upheld 302, crisis will perform bed search
Occasional wrong word or 'sound a like' substitutions may have occurred due to the inherent limitations of voice recognition software. Read the chart carefully and recognize, using context, where substitutions have occurred.
*Critical Care Note
Total Time (30-74mins, 75-104mins- exclusive of procedures): Not Applicable
ED Attending Note
-
Portions of this chart may have been created with voice recognition software.� Occasional wrong word or��sound alike� substitutions may have occurred due to the inherent limitations of voice recognition software.
Discharge Plan
Departure
Patient Disposition: Psych Facility
Date of Disposition: 11/27/23
Time of Disposition: 22:52
Discharge Problem:
Acute psychosis, Paranoia, Noncompliance with medication regimen
Prescriptions:
No Action
metformin 500 mg tablet extended release 24 hr
500 mg PO DAILY
olanzapine 20 mg Tablet
20 mg PO DAILY
naloxone [Narcan] 4 mg/actuation spray,non-aerosol
4 mg intranasal DIRECTED Qty: 2 0RF
Interventions
Interventions:
*Risk Screen - Suicide Last Done: 11/27/23 22:33
*General Assessment Last Done: 11/27/23 22:33
*Neglect/Abuse Screening Last Done: 11/27/23 22:33
ED-Psychological Assessment Last Done: 11/27/23 23:11
Discharge Date and Time
Print Language: CHADIAN
[2023-11-27] MEDS: ATIVAN 2 MG IV (23:05)
[2023-11-27] MEDS: HALDOL 5 MG IM (23:05)
[2023-11-27 23:11] VITALS: BMI 25.5
[2023-11-27 23:16] LABS: % Basophils 0.3 % (0-2); % Eosinophils 0.8 % (0-6); % Immature Granulocytes 0.3 % (0-0.5); % Lymphocytes 26.9 % (20.5-51.1); % Monocytes 5.5 % (1.7-9.3); % Neutrophils 66.2 % (42.2-75.2); Absolute Eosinophils 0.1 10^3/uL (0-0.7); Absolute Monocytes 0.4 10^3/uL (0.1-0.6); Absolute Neutrophils 4.9 10^3/uL (1.4-6.5); Hematocrit 35.1 % (37.0-47.0); Hemoglobin 11.5 g/dL (12.0-16.0); Mean Corp Hgb Conc. 32.8 g/dL (33.0-37.0); Mean Corpuscular Hgb 26.3 pg (27.0-31.0); Mean Corpuscular Volume 80.3 fL (81.0-99.0); Mean Platelet Volume 10.5 fL (7.4-10.4); Nucleated Red Blood Cells % 0 %; Platelet Count 274 10^3/uL (130-400); Red Blood Cell Count 4.37 10^6/uL (4.20-5.40); White Blood Cell Count 7.3 10^3/uL (4.8-10.8)
[2023-11-27 23:17] LABS: Urine Albumin Trace (Neg - Trace); Urine Bilirubin 1+ (Negative); Urine Character Very Cloudy (Clear); Urine Color Yellow; Urine Glucose Negative (Negative); Urine Ketone Trace (Negative); Urine Leukocyte 2+ (Negative); Urine Nitrite Negative (Negative); Urine Occult Blood 4+ (Negative); Urine Specific Gravity 1.025 (<1.030); Urine Urobilinogen Negative (Neg - 1+)
[2023-11-27 23:28] LABS: Urine Squamous Cell >30 /LPF (Few)
[2023-11-27 23:29] LABS: Urine Red Blood Cell >100 /HPF (0-2)
[2023-11-27 23:30] LABS: Urine Bacteria Few (Negative)
[2023-11-27 23:36] LABS: Amphetamines Negative (Negative); Barbiturates Negative (Negative); Benzodiazepines Negative (Negative); Buprenorphine Positive (Negative); Cocaine Negative (Negative); Marijuana Negative (Negative); Methadone Negative (Negative); Methamphetamines Negative (Negative); Opiates Negative (Negative); Phencyclidine Negative (Negative)
[2023-11-27 23:37] LABS: HCG, Serum Qualitative Screen Negative
[2023-11-27 23:41] LABS: ALT (SGPT) 24 U/L (0-35); AST (SGOT) 43 U/L (14-36); Albumin 4.8 g/dl (3.5-5.0); Alkaline Phosphatase 73 U/L (38-126); Blood Urea Nitrogen 20 mg/dl (7-17); Calcium 10.1 mg/dl (8.4-10.2); Carbon Dioxide 27 mmol/L (22-30); Chloride 104 mmol/L (98-107); Estimated Creatinine Clearance 81 ml/min; Glucose 108 mg/dl (70-99); Potassium 3.6 mmol/L (3.5-5.1); Sodium 142 mmol/L (135-145); Total Bilirubin 0.4 mg/dl (0.2-1.3); Total Protein 7.5 g/dl (6.3-8.2); eGFR > 60.00
[2023-11-27 23:53] LABS: Tricyclic Antidepressants Negative (Negative)
[2023-11-27 23:58] LABS: Fentanyl, Urine Negative (Negative)
[2023-11-28] MEDS: TORADOL 30 MG IM (00:08)
[2023-11-28 09:38] VITALS: BP 104/68
== END 2023-11-28 09:45 ==
LOC: EMR 22:32
PROVIDERS: EMERGENCY PHYSICIAN Student in an Organized Health Care Education/Training Program
DX: F23 Brief psychotic disorder (principal); Z91.148 Patient's other noncompliance with medication regimen for other reason; F31.9 Bipolar disorder, unspecified; F90.9 Attention-deficit hyperactivity disorder, unspecified type; F19.10 Other psychoactive substance abuse, uncomplicated; D64.9 Anemia, unspecified; E06.3 Autoimmune thyroiditis; Z79.899 Other long term (current) drug therapy; Z80.3 Family history of malignant neoplasm of breast; Z87.440 Personal history of urinary (tract) infections; Z87.442 Personal history of urinary calculi; Z88.1 Allergy status to other antibiotic agents; Z88.5 Allergy status to narcotic agent; Z91.51 Personal history of suicidal behavior
CPT/HCPCS: 99283; 96374; 96372 ×2; 80053; 80306; 80307; 81003; 81015; 84703; 85025; 87086

== ENCOUNTER 2023-12-19 22:45 | Emergency (ER) | payer OTHER, SELFPAY ==
[2023-12-19 22:48] VITALS: BP 120/80
--- NOTE | 2023-12-19 23:15 | ED.GENMED ---
History of Present Illness
General
Chief Complaint: Crisis Evaluation
Source: patient
Exam Limitations: none
Time Seen by Provider: 12/19/23 23:08
History of Present Illness
History of Present Illness:
See MDM
Past History
Past History
ED Past Medical History: Psychiatric (Prior suicide attempt, bipolar, Paranoia, ADHD, Schizophrenia, Cutter, Overdose), Other (Substance abuse, UTI, Kidney stones, Anemia, Hashimotos Thyroiditis) and Other (Anemia)
ED Past Surgical History: None
Social History
Tobacco: Non-smoker
Alcohol: Binge drinker
Drug: Marijuana, Cocaine, Narcotics (Heroin) and IVDA
Personal: Single
Living: with family
Employment: Not employed
Family History
Family History: Other (Mother with breast cancer)
Phy Exam
Physical Exam
Physical Exam:
See MDM
Course
Orders/Labs/Results
Orders:
Orders
12/19/23 23:10
Crisis Consult Urgent
Reason for Consult: depression
Complete Blood Count/With Diff Urgent
Comprehensive Metabolic Panel Urgent
HCG, Serum Qualitative Screen Urgent
12/19/23 23:11
Test Result ONCE
12/19/23 23:15
Lorazepam [Ativan] 1 mg IV NOW STA
12/19/23 23:32
Urinalysis Reflex To Culture Urgent
Date Specimen was Collected: 12/19/23
Time Specimen was Collected: 23:26
Urine Drug Abuse Screen Urgent
Date Specimen was Collected: 12/19/23
Time Specimen was Collected: 23:26
Vital Signs
Initial and Last Documented VS:
Initial Vital Signs
Temp Pulse Resp BP Pulse Ox
97.8 F 86 22 120/80 97
12/19/23 22:48 12/19/23 22:48 12/19/23 22:48 12/19/23 22:48 12/19/23 22:48
Last Documented Vital Signs
Temp Pulse Resp BP Pulse Ox
97.8 F 86 22 120/80 97
12/19/23 22:48 12/19/23 22:48 12/19/23 22:48 12/19/23 22:48 12/19/23 22:48
MDM/Problems Addressed
Differential Diagnosis Includes:
HPI and MDM Narrative:
28-year-old female presenting for evaluation of auditory hallucinations. Patient states she is hearing voices. Patient believes she needs to go to an inpatient psychiatric facility. Patient has a very bizarre affect. She is staring off into
space and intermittently answering questions. She has very flat affect. Patient states he is also seeing things that are not there but cannot explain what she is seeing. I offered medication. Patient is requesting IV Ativan
Will have crisis evaluate
Physical exam
General: Bizarre affect, flat affect. Staring off into space
HEENT: protecting airway
Neck: appears supple
CV: No evidence of cyanosis
Resp: No accessory muscle use
Abd: Non-distended
Extremities: No deformities
Neuro: alert
Psych: Flat affect
Skin: Intact
Problems Addressed including Acute and Chronic Conditions affecting care:
1. Auditory hallucinations
Acuity: acute
Prognosis: stable
Details: Will obtain basic blood work and have crisis evaluate for inpatient services
Updates
12:30 AM patient changed her mind and is refusing Ativan and blood work. Patient requesting to go home. She does not appear to be a danger to herself. Crisis did evaluate and patient left the emergency department with verbal instructions
Differential Diagnosis (but not limited to): Psychosis, medication noncompliance
Testing considered: Alcohol level
Drug therapy (if applicable): OTC meds, please see d/c instruction regarding Rx drugs
Amount and/or Complexity of Data Reviewed
Clinical info obtained from: Patient
External data reviewed: N/A
Labs I independently reviewed (but not limited to): N/A
Radiology: N/A
Pulse Ox: not hypoxic
EKG independently reviewed: N/A
Residential Treatment Staff: N/A
Critical Care: N/A
Risk of Complication:
Social Determinants of health: Good social support
Discussed with other providers: Crisis
Escalation of Care includes Admit/Obs: Patient left the emergency department with verbal discharge instructions
Occasional wrong word or 'sound a like' substitutions may have occurred due to the inherent limitations of voice recognition software. Read the chart carefully and recognize, using context, where substitutions have occurred.
*Critical Care Note
Total Time (30-74mins, 75-104mins- exclusive of procedures): Not Applicable
ED Attending Note
-
Portions of this chart may have been created with voice recognition software.� Occasional wrong word or��sound alike� substitutions may have occurred due to the inherent limitations of voice recognition software.
Discharge Plan
Departure
Patient Disposition: Home (Routine Discharge)
Date of Disposition: 12/19/23
Time of Disposition: 23:23
Patient with high blood pressure during this ER visit?: No
Discharge Problem:
Auditory hallucinations
Prescriptions:
No Action
metformin 500 mg tablet extended release 24 hr
500 mg PO DAILY
olanzapine 20 mg Tablet
20 mg PO DAILY
naloxone [Narcan] 4 mg/actuation spray,non-aerosol
4 mg intranasal DIRECTED Qty: 2 0RF
Interventions
Interventions:
*Risk Screen - Suicide Last Done: 12/19/23 22:47
*General Assessment Last Done: 12/19/23 23:35
*Neglect/Abuse Screening Last Done: 12/19/23 22:48
ED- Fall Risk Assessment Last Done: 12/19/23 23:35
*ED COVID-19 Vaccine History Last Done: 12/19/23 23:35
ED- Neurological Assessment Last Done: 12/19/23 23:35
ED-Psychological Assessment Last Done: 12/19/23 23:35
Discharge Date and Time
Print Language: [place]AN[place]
[2023-12-20 00:34] LABS: Urine Albumin Trace (Neg - Trace); Urine Bilirubin 1+ (Negative); Urine Character Slightly Cloudy (Clear); Urine Color Yellow; Urine Glucose Negative (Negative); Urine Ketone Trace (Negative); Urine Leukocyte 2+ (Negative); Urine Nitrite Negative (Negative); Urine Occult Blood Negative (Negative); Urine Urobilinogen 1+ (Neg - 1+)
[2023-12-20 00:50] LABS: Amphetamines Negative (Negative); Barbiturates Negative (Negative); Benzodiazepines Negative (Negative); Buprenorphine Positive (Negative)
[2023-12-20 00:51] LABS: Cocaine Negative (Negative); Marijuana Negative (Negative); Methadone Negative (Negative); Methamphetamines Negative (Negative); Opiates Negative (Negative); Phencyclidine Negative (Negative); Tricyclic Antidepressants Negative (Negative)
[2023-12-20 01:19] LABS: Urine Bacteria Many (Negative); Urine Squamous Cell >30 /LPF (Few)
[2023-12-20 01:20] LABS: Urine Mucus Moderate
[2023-12-20 01:22] LABS: Fentanyl, Urine Negative (Negative); Urine Red Blood Cell 0-2 /HPF (0-2); Urine White Cell 30-40 /HPF (0-5)
== END 2023-12-20 00:20 | disposition left against medical advice (07) ==
LOC: EMR 22:45
PROVIDERS: EMERGENCY PHYSICIAN Student in an Organized Health Care Education/Training Program; FAMILY PHYSICIAN Family Medicine
DX: R44.0 Auditory hallucinations (principal); F31.9 Bipolar disorder, unspecified; F90.9 Attention-deficit hyperactivity disorder, unspecified type; E06.3 Autoimmune thyroiditis; Z80.3 Family history of malignant neoplasm of breast; Z87.440 Personal history of urinary (tract) infections; Z87.442 Personal history of urinary calculi; Z91.51 Personal history of suicidal behavior
CPT/HCPCS: 99283; 96374; 80306; 80307; 81003; 81015; 87086

== ENCOUNTER 2024-01-25 11:46 | Emergency (ER) | payer OTHER, SELFPAY ==
[2024-01-25 11:48] VITALS: BP 116/78
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
[2024-01-25] MEDS: ATIVAN 2 MG PO (14:02)
[2024-01-25 14:10] LABS: % Basophils 0.4 % (0-2); % Immature Granulocytes 0.3 % (0-0.5); % Lymphocytes 14.1 % (20.5-51.1); % Neutrophils 79.2 % (42.2-75.2); Absolute Basophils 0.1 10^3/uL (0-0.2); Absolute Lymphocytes 1.6 10^3/uL (1.2-3.4); Absolute Monocytes 0.7 10^3/uL (0.1-0.6); Absolute Neutrophils 9.2 10^3/uL (1.4-6.5); Hematocrit 35.8 % (37.0-47.0); Hemoglobin 11.7 g/dL (12.0-16.0); Mean Corp Hgb Conc. 32.7 g/dL (33.0-37.0); Mean Corpuscular Hgb 26.7 pg (27.0-31.0); Mean Corpuscular Volume 81.5 fL (81.0-99.0); Mean Platelet Volume 10.1 fL (7.4-10.4); Nucleated Red Blood Cells % 0 %; Platelet Count 381 10^3/uL (130-400); Red Blood Cell Count 4.39 10^6/uL (4.20-5.40); Red Cell Dist. Width 14.7 % (11.5-14.5); White Blood Cell Count 11.6 10^3/uL (4.8-10.8)
[2024-01-25 14:17] LABS: HCG, Urine Qualitative Screen Negative
[2024-01-25 14:19] LABS: ALT (SGPT) 23 U/L (0-35); AST (SGOT) 32 U/L (14-36); Alkaline Phosphatase 61 U/L (38-126); Blood Urea Nitrogen 19 mg/dl (7-17); Calcium 10.6 mg/dl (8.4-10.2); Carbon Dioxide 25 mmol/L (22-30); Chloride 105 mmol/L (98-107); Glucose 94 mg/dl (70-99); Potassium 3.8 mmol/L (3.5-5.1); Sodium 146 mmol/L (135-145); Total Bilirubin 0.4 mg/dl (0.2-1.3); eGFR > 60.00
[2024-01-25 14:28] LABS: Acetaminophen < 10 ug/ml (10-30); Salicylate < 1.0 mg/dl (2.0-20.0)
[2024-01-25 14:31] LABS: Alcohol None Detected
[2024-01-25 14:42] LABS: Amphetamines Negative (Negative); Barbiturates Negative (Negative); Benzodiazepines Negative (Negative); Buprenorphine Positive (Negative); Cocaine Negative (Negative); Marijuana Negative (Negative); Methadone Negative (Negative); Methamphetamines Negative (Negative); Opiates Negative (Negative); Phencyclidine Negative (Negative); Tricyclic Antidepressants Negative (Negative)
[2024-01-25 15:01] LABS: Fentanyl, Urine Negative (Negative)
[2024-01-25 19:24] VITALS: BP 109/76
== END 2024-01-25 20:16 ==
LOC: EMR 11:46
PROVIDERS: Nurse Practitioner; EMERGENCY PHYSICIAN Emergency Medicine; PRIMARYCARE PHYSICIAN Family Medicine
DX: F29 Unspecified psychosis not due to a substance or known physiological condition (principal); F31.9 Bipolar disorder, unspecified; F22 Delusional disorders; F90.9 Attention-deficit hyperactivity disorder, unspecified type; F20.9 Schizophrenia, unspecified; D64.9 Anemia, unspecified; E06.3 Autoimmune thyroiditis; Z80.3 Family history of malignant neoplasm of breast; Z87.440 Personal history of urinary (tract) infections; Z87.442 Personal history of urinary calculi; Z91.148 Patient's other noncompliance with medication regimen for other reason; Z91.51 Personal history of suicidal behavior
CPT/HCPCS: 99283; 80053; 80143; 80179; 80306; 80307; 81025; 82077; 85025

== ENCOUNTER 2024-09-14 21:40 | Emergency (ER) | payer OTHER, SELFPAY ==
[2024-09-14 21:42] VITALS: BP 142/98
--- NOTE | 2024-09-14 21:56 | EDRN ---
Pt. brought to crisis rm. 1, pt. w/ flight of ideas, denies SI/HI to nursing staff. Pt. cooperative w/ this RN at this time, changed into paper scrubs and gave her own belongings to security.
--- NOTE | 2024-09-14 21:59 | ED.GENMED ---
History of Present Illness
General
Chief Complaint: Crisis Evaluation
Source: patient, records and family (Father)
Exam Limitations: none
Time Seen by Provider: 09/14/24 21:51
Nursing documentation reviewed up to this point in time: agreed with
History of Present Illness
History of Present Illness:
29-year-old female with a past medical history as noted including polysubstance use, prior history of psychosis�she presents today with her father due to hallucinations and bizarre behavior. Patient was here earlier and father apparently petitioned
for a 302 due to her behavior which was not upheld. Symptoms worsening throughout the day which prompted return to the emergency department. It sounds like patient is currently staying at a recovery house; sounds like she has been having issues
with stealing and continued drug use as well as noncompliance with her psychiatric medications. Her father says that they discovered today that she has been off of her medications for quite some time after discovering untouched pill packs�patient
denies this and says that she has been taking her medication without missing doses. Father has witnessed increased paranoia, hallucinations and bizarre behavior. Patient is delusional here and cannot meaningfully participate in history�any attempt
at gaining history results and severe flights of ideas, delusions/paranoid expressions. She vehemently denies drug or alcohol use recently and tells me she has never done drugs or alcohol despite long documented history of such.
Past History
Past History
ED Past Medical History: Psychiatric (Prior suicide attempt, bipolar, Paranoia, ADHD, Schizophrenia, Cutter, Overdose), Other (Substance abuse, UTI, Kidney stones, Anemia, Hashimotos Thyroiditis) and Other (Anemia)
ED Past Surgical History: None
Social History
Tobacco: Non-smoker
Alcohol: Binge drinker
Drug: Marijuana, Cocaine, Narcotics (Heroin) and IVDA
Personal: Single
Living: with family
Employment: Not employed
Family History
Family History: Other (Mother with breast cancer)
Review of Systems
Review of Systems
Unable to obtain full review of systems at this time due to: other (Psychosis)
All Other Systems: Not applicable
Phy Exam
Physical Exam
Physical Exam:
General: Awake, alert, disheveled, poor eye contact
Head: Normocephalic, atraumatic
Eyes: Conjunctiva normal
Throat: Airway intact
Neck: Trachea midline
Lungs: Breathing comfortably no distress
Heart: Regular rate
Neuro: No gross deficits
Skin: No signs of trauma
Psych: Disheveled, poor eye contact, flights of idea, at times appears to be responding to internal stimuli; she reports anxious mood; she has a bizarre affect, poor insight and judgment
Scores
Heart Failure Risk
Heart Failure Risk Score: Not Applicable
Heart Score for Chest Pain Patients
STEMI patient?: Not applicable
Withdrawal Assessment of Alcohol
Withdrawal Assessment Completed?: Not applicable
Course
Orders/Labs/Results
Orders:
Orders
09/14/24 21:45
Crisis Consult Urgent
Reason for Consult: peng, flight of idea
09/14/24 22:08
Test Result ONCE
09/14/24 22:33
Acetaminophen Urgent
Alcohol Urgent
Complete Blood Count/With Diff Urgent
Comprehensive Metabolic Panel Urgent
HCG, Serum Qualitative Screen Urgent
Salicylate Urgent
09/14/24 22:35
Drug Screen, Urine [Urine Drug Abuse Screen] Urgent
Date Specimen was Collected: 09/14/24
Time Specimen was Collected: 22:34
Fentanyl, Urine Urgent
Abnormal Lab Results
09/14/24 09/14/24
22:33 22:35
Hgb 11.4 L g/dL
(12.0-16.0)
Hct 34.6 L %
(37.0-47.0)
MCV 79.7 L fL
(81.0-99.0)
MCH 26.3 L pg
(27.0-31.0)
MCHC 32.9 L g/dL
(33.0-37.0)
RDW 14.6 H %
(11.5-14.5)
Chloride 109 H mmol/L
(98-107)
Glucose 176 H mg/dl
(70-99)
Calcium 10.5 H mg/dl
(8.4-10.2)
AST 86 H U/L
(14-36)
Salicylates < 1.0 L mg/dl
(2.0-20.0)
Ur Buprenorphine Positive H
(Negative)
Acetaminophen < 10 L ug/ml
(10-30)
Ur Tricyclics Screen Positive H
(Negative)
U Benzodiazepines Scrn Positive H
(Negative)
09/14/24 22:33
09/14/24 22:33
Vital Signs
Initial and Last Documented VS:
Initial Vital Signs
Temp Pulse Resp BP Pulse Ox
37.3 C 130 18 142/98 96
09/14/24 21:42 09/14/24 21:42 09/14/24 21:42 09/14/24 21:42 09/14/24 21:42
Last Documented Vital Signs
Temp Pulse Resp BP Pulse Ox
37.3 C 130 18 142/98 96
09/14/24 21:42 09/14/24 21:42 09/14/24 21:42 09/14/24 21:42 09/14/24 22:07
MDM/Problems Addressed
Differential Diagnosis Includes:
Psychosis/schizophrenia, bipolar with peng, drug/alcohol intoxication
MDM/Problems Addressed:
29-year-old female presents for evaluation of bizarre behavior and delusions in the setting of medication noncompliance; she has been staying at a recovery house apparently was discovered that she has not been taking her medicines. 302 was filed by
father earlier but was not upheld. Returns with worsening behavior. Patient appears willing to go for inpatient psychiatric treatment that she is clearly acutely psychotic, cannot care for self in this condition. Unclear if acute drug/alcohol use
is contributing to her behavior today�will send basic labs, alcohol level, UDS. Monitor very closely and reassess after the above.
Labs reviewed: CBC shows marginal anemia, CMP no clinically significant abnormalities. Tylenol and salicylate levels negative. Alcohol level negative. UDS positive for benzos, TCAs and buprenorphine. At this point I feel that this is a primary
and acute psychiatric emergency requiring inpatient treatment. Patient currently voluntary but I would consider filing for a 302 based on my observations here should she change her mind. Discussed with crisis team and they are working towards
inpatient psychiatric placement.
Chronic conditions affecting care:
Polysubstance use
*Pulse Oximetry
SaO2: 96
Oxygen Mode of Delivery: Room air
Patient hypoxic: no (96%)
*Critical Care Note
Total Time (30-74mins, 75-104mins- exclusive of procedures): Not Applicable
Data Reviewed
Review of Other/Old Records Reveals: Labs and Records
Source: patient, records and family
Patient Management
Discussion with other providers: Other (Discussed with crisis staff)
ED Attending Note
-
Portions of this chart may have been created with voice recognition software.� Occasional wrong word or��sound alike� substitutions may have occurred due to the inherent limitations of voice recognition software.
Discharge Plan
Departure
Patient Disposition: Psych Facility
Date of Disposition: 09/14/24
Time of Disposition: 23:02
Discharge Problem:
Psychosis
Prescriptions:
No Action
metformin 500 mg tablet extended release 24 hr
500 mg PO DAILY
olanzapine 20 mg Tablet
20 mg PO DAILY
naloxone [Narcan] 4 mg/actuation spray,non-aerosol
4 mg intranasal DIRECTED Qty: 2 0RF
Referrals:
UNKNOWN - PT NOT,INTERVIEWE [Family Provider]
Interventions
Interventions:
*Risk Screen - Suicide Last Done: 09/14/24 21:42
*General Assessment Last Done: 09/14/24 21:55
*Neglect/Abuse Screening Last Done: 09/14/24 21:42
*ED- Fall Risk Assessment Last Done: 09/14/24 21:55
*ED COVID-19 Vaccine History Last Done: 09/14/24 21:55
ED-Psychological Assessment Last Done: 09/14/24 21:54
Discharge Date and Time
Print Language: SLOVAK
[2024-09-14 22:53] LABS: Hematocrit 34.6 % (37.0-47.0); Hemoglobin 11.4 g/dL (12.0-16.0); Mean Corp Hgb Conc. 32.9 g/dL (33.0-37.0); Mean Corpuscular Volume 79.7 fL (81.0-99.0); Nucleated Red Blood Cells % 0 %; Platelet Count 329 10^3/uL (130-400); Red Cell Dist. Width 14.6 % (11.5-14.5)
[2024-09-14 22:55] LABS: HCG, Serum Qualitative Screen Negative
[2024-09-14 22:58] LABS: ALT (SGPT) 35 U/L (0-35); AST (SGOT) 86 U/L (14-36); Acetaminophen < 10 ug/ml (10-30); Albumin 4.8 g/dl (3.5-5.0); Alkaline Phosphatase 75 U/L (38-126); Blood Urea Nitrogen 17 mg/dl (7-17); Calcium 10.5 mg/dl (8.4-10.2); Carbon Dioxide 22 mmol/L (22-30); Chloride 109 mmol/L (98-107); Glucose 176 mg/dl (70-99); Potassium 3.5 mmol/L (3.5-5.1); Salicylate < 1.0 mg/dl (2.0-20.0); Sodium 142 mmol/L (135-145); Total Protein 8.0 g/dl (6.3-8.2); eGFR > 60.00
== END 2024-09-15 01:45 ==
LOC: EMR 21:40
PROVIDERS: EMERGENCY PHYSICIAN Emergency Medicine
DX: F29 Unspecified psychosis not due to a substance or known physiological condition (principal); E06.3 Autoimmune thyroiditis; D64.9 Anemia, unspecified; F19.90 Other psychoactive substance use, unspecified, uncomplicated; Z91.51 Personal history of suicidal behavior; Z91.148 Patient's other noncompliance with medication regimen for other reason
CPT/HCPCS: 99285; 80053; 80143; 80179; 80306; 80307; 82077; 84703; 85025

== ENCOUNTER 2024-10-02 11:30 | Emergency (ER) | payer OTHER, SELFPAY ==
[2024-10-02 11:33] VITALS: BP 112/83
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
[2024-10-02] MEDS: ATIVAN 0.5 MG PO (12:36)
[2024-10-02 12:53] LABS: Hematocrit 35.1 % (37.0-47.0); Hemoglobin 11.3 g/dL (12.0-16.0); Mean Corp Hgb Conc. 32.2 g/dL (33.0-37.0); Mean Corpuscular Volume 82.0 fL (81.0-99.0); Nucleated Red Blood Cells % 0 %; Platelet Count 285 10^3/uL (130-400); Red Cell Dist. Width 14.8 % (11.5-14.5)
[2024-10-02 13:01] LABS: HCG, Serum Qualitative Screen Negative
[2024-10-02 13:31] LABS: ALT (SGPT) 18 U/L (0-35); AST (SGOT) 25 U/L (14-36); Albumin 4.8 g/dl (3.5-5.0); Alkaline Phosphatase 83 U/L (38-126); Blood Urea Nitrogen 20 mg/dl (7-17); Calcium 9.9 mg/dl (8.4-10.2); Carbon Dioxide 25 mmol/L (22-30); Chloride 100 mmol/L (98-107); Glucose 86 mg/dl (70-99); Potassium 4.1 mmol/L (3.5-5.1); Sodium 135 mmol/L (135-145); Total Protein 7.9 g/dl (6.3-8.2); eGFR > 60.00
== END 2024-10-02 17:28 | disposition left against medical advice (07) ==
LOC: EMR 11:30
PROVIDERS: EMERGENCY PHYSICIAN Emergency Medicine
DX: T74.21XA Adult sexual abuse, confirmed, initial encounter (principal); Y92.9 Unspecified place or not applicable; F31.9 Bipolar disorder, unspecified; F90.9 Attention-deficit hyperactivity disorder, unspecified type; F20.9 Schizophrenia, unspecified; F19.10 Other psychoactive substance abuse, uncomplicated; E06.3 Autoimmune thyroiditis; Z80.3 Family history of malignant neoplasm of breast; Z87.440 Personal history of urinary (tract) infections; Z87.442 Personal history of urinary calculi; Z91.51 Personal history of suicidal behavior
CPT/HCPCS: 99283; 80053; 84703; 85025; 87389

== ENCOUNTER 2024-12-02 16:23 | Emergency (ER) | payer OTHER, SELFPAY ==
[2024-12-02 16:27] VITALS: BP 126/83
[2024-12-02] MEDS: HALDOL 5 MG IM (18:15)
[2024-12-02] MEDS: VERSED 2 MG IM (18:16)
--- NOTE | 2024-12-02 18:40 | EDRN ---
1830 Patient increasingly agitated and aggressive with staff and other crisis patients. patient attempting to elope and is not redirectable. patient demonstrating unsafe intimidating behavior and giving middle finger to other patient and cursing at
other patient and staff. patient medicated
Patient placed in 4 point locking restraints at 1836
[2024-12-02 18:50] VITALS: BP 116/84
--- NOTE | 2024-12-02 18:51 | EDRN ---
patient resting with eyes closed
[2024-12-02 19:24] VITALS: BMI 24.8
[2024-12-02 19:28] LABS: Hematocrit 38.2 % (37.0-47.0); Hemoglobin 12.5 g/dL (12.0-16.0); Mean Corp Hgb Conc. 32.7 g/dL (33.0-37.0); Mean Corpuscular Volume 78.6 fL (81.0-99.0); Nucleated Red Blood Cells % 0 %; Platelet Count 340 10^3/uL (130-400); Red Cell Dist. Width 16.0 % (11.5-14.5)
[2024-12-02 19:39] LABS: HCG, Serum Qualitative Screen Positive
[2024-12-02 19:43] LABS: Blood Urea Nitrogen 12 mg/dl (7-17); Calcium 10.3 mg/dl (8.4-10.2); Carbon Dioxide 22 mmol/L (22-30); Chloride 108 mmol/L (98-107); Estimated Creatinine Clearance 96 ml/min; Glucose 122 mg/dl (70-99); Potassium 3.7 mmol/L (3.5-5.1); Sodium 138 mmol/L (135-145); eGFR > 60.00
--- NOTE | 2024-12-02 20:04 | ED.GENMED ---
History of Present Illness
<Chandana Hernandez MD - Last Filed: 12/04/24 06:06>
General
Chief Complaint: Crisis Evaluation
Source: patient
Exam Limitations: altered mental status
Time Seen by Provider: 12/02/24 16:26
History of Present Illness
History of Present Illness:
Patient with history of schizophrenia, presents to ED for medical evaluation after 302 petition was filed by police officers. Prior to arrival, patient was noted to be walking in and out of local stores and exhibiting unusual behavior. Upon
arrival, patient is alert and awake, but uncooperative and confrontational. Patient request to be discharged from ED, at the request of God within her. Patient noted to be speaking in foreign language intermittently and speaking to herself.
Past History
<Chandana Hernandez MD - Last Filed: 12/04/24 06:06>
Past History
ED Past Medical History: Psychiatric (Prior suicide attempt, bipolar, Paranoia, ADHD, Schizophrenia, Cutter, Overdose), Other (Substance abuse, UTI, Kidney stones, Anemia, Hashimotos Thyroiditis) and Other (Anemia)
ED Past Surgical History: None
Social History
Tobacco: Non-smoker
Alcohol: Binge drinker
Drug: Marijuana, Cocaine, Narcotics (Heroin) and IVDA
Personal: Single
Living: with family
Employment: Not employed
Family History
Family History: Other (Mother with breast cancer)
Review of Systems
<Chandana Hernandez MD - Last Filed: 12/04/24 06:06>
Review of Systems
Allergies reviewed?: Yes
Unable to obtain full review of systems at this time due to: due to acuity
All Other Systems: Not applicable
Phy Exam
<Chandana Hernandez MD - Last Filed: 12/04/24 06:06>
Physical Exam
Physical Exam:
Physical Exam
General: mild distress, not acutely ill. afebrile
Head: nc/at. eomi
Neck: supple. normal range of motion
Neuro: alert and awake. no focal neurological deficits
Skin: no rash
Psychiatric: uncooperative
Extremities: no edema. no calf tenderness.
Course
<Chandana Hernandez MD - Last Filed: 12/04/24 06:06>
Orders/Labs/Results
Orders:
Orders
12/02/24 16:58
Crisis Consult Urgent
Reason for Consult: psychosis
12/02/24 18:10
Haloperidol Lactate [Haldol] 5 mg IM NOW STA
Midazolam HCl [Versed] 2 mg IM NOW STA
12/02/24 18:11
Haloperidol Lactate [Haldol] 5 mg .ROUTE .STK-MED ONE
12/02/24 18:12
diazePAM [Valium Injection] 10 mg .ROUTE .STK-MED ONE
12/02/24 18:36
Restraints - Violent As Directed
Restraint Type-: Locked-4 point/4 rails
Apply From (date): 12/02/24
Apply from (time): 18:36
Remove (date): 12/02/24
Remove (time): 22:36
12/02/24 19:09
Test Result ONCE
12/02/24 19:21
Alcohol Urgent
Basic Metabolic Panel Urgent
Beta HCG Quantitative Urgent
Comment: ADD ON
Complete Blood Count/With Diff Urgent
HCG, Serum Qualitative Screen Urgent
Comment: Notify provider if positive test present
12/02/24 19:40
Add On- LAB Urgent
Comments:: SERUM HCG QUANTITATIVE
Tests Added?: SERUM HCG QUANTITATIVE
12/02/24 21:11
Lorazepam [Ativan] 1 mg PO NOW STA
12/02/24 21:44
Fentanyl, Urine Urgent
Urine Drug Abuse Screen Urgent
Date Specimen was Collected: 12/02/24
Time Specimen was Collected: 21:42
12/02/24 22:55
ED Special Safety Observation ONCE
Observation level: One to Two
12/03/24 07:08
CUSTOMER RESOLUTION SPECIALIST CONSULT Urgent
Consulting Provider: Delmis Ho
Was physician already notified: Yes
12/03/24 11:50
US 1st Trimester Urgent
Comment:
Reason For Exam: , assess
12/03/24 13:35
Midazolam HCl [Versed] 2 mg IM NOW STA
Abnormal Lab Results
12/02/24 12/02/24
19:21 21:44
MCV 78.6 L fL
(81.0-99.0)
MCH 25.7 L pg
(27.0-31.0)
MCHC 32.7 L g/dL
(33.0-37.0)
RDW 16.0 H %
(11.5-14.5)
Absolute Neuts (auto) 8.1 H 10^3/uL
(1.4-6.5)
Neutrophils % 76.2 H %
(42.2-75.2)
Lymphocytes % 16.9 L %
(20.5-51.1)
Chloride 108 H mmol/L
(98-107)
Glucose 122 H mg/dl
(70-99)
Calcium 10.3 H mg/dl
(8.4-10.2)
Urine Opiates Screen Positive H
(Negative)
Ur Amphetamines Screen Positive H
(Negative)
U Methamphetamines Scrn Positive H
(Negative)
Urine Cocaine Screen Positive H
(Negative)
U Marijuana (THC) Screen Positive H
(Negative)
12/02/24 19:21
12/02/24 19:21
Vital Signs
Initial and Last Documented VS:
Initial Vital Signs
Temp Pulse Resp BP Pulse Ox
97.9 F 139 18 126/83 98
12/02/24 16:27 12/02/24 16:27 12/02/24 16:27 12/02/24 16:27 12/02/24 16:27
Last Documented Vital Signs
Temp Pulse Resp BP Pulse Ox
98.1 F 105 16 104/80 98
12/03/24 09:06 12/04/24 03:37 12/03/24 13:40 12/04/24 03:37 12/04/24 03:37
<Marjorie Mathews MD - Last Filed: 12/03/24 13:36>
Orders/Labs/Results
Orders:
Orders
12/02/24 16:58
Crisis Consult Urgent
Reason for Consult: psychosis
12/02/24 18:10
Haloperidol Lactate [Haldol] 5 mg IM NOW STA
Midazolam HCl [Versed] 2 mg IM NOW STA
12/02/24 18:11
Haloperidol Lactate [Haldol] 5 mg .ROUTE .STK-MED ONE
12/02/24 18:12
diazePAM [Valium Injection] 10 mg .ROUTE .STK-MED ONE
12/02/24 18:36
Restraints - Violent As Directed
Restraint Type-: Locked-4 point/4 rails
Apply From (date): 12/02/24
Apply from (time): 18:36
Remove (date): 12/02/24
Remove (time): 22:36
12/02/24 19:09
Test Result ONCE
12/02/24 19:21
Alcohol Urgent
Basic Metabolic Panel Urgent
Beta HCG Quantitative Urgent
Comment: ADD ON
Complete Blood Count/With Diff Urgent
HCG, Serum Qualitative Screen Urgent
Comment: Notify provider if positive test present
12/02/24 19:40
Add On- LAB Urgent
Comments:: SERUM HCG QUANTITATIVE
Tests Added?: SERUM HCG QUANTITATIVE
12/02/24 21:11
Lorazepam [Ativan] 1 mg PO NOW STA
12/02/24 21:44
Fentanyl, Urine Urgent
Urine Drug Abuse Screen Urgent
Date Specimen was Collected: 12/02/24
Time Specimen was Collected: 21:42
12/02/24 22:55
ED Special Safety Observation ONCE
Observation level: One to Two
12/03/24 07:08
CUSTOMER RESOLUTION SPECIALIST CONSULT Urgent
Consulting Provider: Delmis Ho
Was physician already notified: Yes
12/03/24 11:50
US 1st Trimester Urgent
Comment:
Reason For Exam: , assess
12/03/24 13:35
Midazolam HCl [Versed] 2 mg IM NOW STA
Abnormal Lab Results
12/02/24 12/02/24
19:21 21:44
MCV 78.6 L fL
(81.0-99.0)
MCH 25.7 L pg
(27.0-31.0)
MCHC 32.7 L g/dL
(33.0-37.0)
RDW 16.0 H %
(11.5-14.5)
Absolute Neuts (auto) 8.1 H 10^3/uL
(1.4-6.5)
Neutrophils % 76.2 H %
(42.2-75.2)
Lymphocytes % 16.9 L %
(20.5-51.1)
Chloride 108 H mmol/L
(98-107)
Glucose 122 H mg/dl
(70-99)
Calcium 10.3 H mg/dl
(8.4-10.2)
Urine Opiates Screen Positive H
(Negative)
Ur Amphetamines Screen Positive H
(Negative)
U Methamphetamines Scrn Positive H
(Negative)
Urine Cocaine Screen Positive H
(Negative)
U Marijuana (THC) Screen Positive H
(Negative)
12/02/24 19:21
12/02/24 19:21
Vital Signs
Initial and Last Documented VS:
Initial Vital Signs
Temp Pulse Resp BP Pulse Ox
97.9 F 139 18 126/83 98
12/02/24 16:27 12/02/24 16:27 12/02/24 16:27 12/02/24 16:27 12/02/24 16:27
Last Documented Vital Signs
Temp Pulse Resp BP Pulse Ox
98.1 F 105 16 104/80 98
12/03/24 09:06 12/04/24 03:37 12/03/24 13:40 12/04/24 03:37 12/04/24 03:37
<Chandana Hernandez MD - Last Filed: 12/04/24 06:06>
MDM/Problems Addressed
MDM/Problems Addressed:
Blood work reviewed, sig. minimally elevated B-HCG level. Discussed with oncall wool grader physician who recommends repeat B-HCG level in 48hrs. Pt otherwise is medically cleared.
<Chandana Hernandez MD - Last Filed: 12/04/24 06:06>
*Pulse Oximetry
SaO2: 99
Oxygen Mode of Delivery: Room air
Patient hypoxic: no
*Critical Care Note
Total Time (30-74mins, 75-104mins- exclusive of procedures): Not Applicable
<Marjorie Mathews MD - Last Filed: 12/03/24 13:36>
Update Note
Update Note:
December 03, 2024, 11:51 AM. At request of team attempting to secure inpatient psych placement, we ordered a gynecology consult. Patient seen by associate attorney, case discussed with me, she feels the patient is medically stable for hospitalization.
Can follow-up with them for continued CUSTOMER RESOLUTION SPECIALIST care. I was just notified by worker that one of the facilities that is considering the patient is requesting an ultrasound which I just ordered. Of note, patient is not having any pain or bleeding.
136pm Pt with increasing anxiety, sl agitation, requestings meds. I spoke with pt and examined, meds ordered.
ED Attending Note
<Chandana Hernandez MD - Last Filed: 12/04/24 06:06>
-
Portions of this chart may have been created with voice recognition software.� Occasional wrong word or��sound alike� substitutions may have occurred due to the inherent limitations of voice recognition software.
Discharge Plan
Departure
Patient Disposition: Psych Facility
Date of Disposition: 12/02/24
Time of Disposition: 20:04
Patient Status:: 302
Discharge Problem:
Schizophrenia
Prescriptions:
No Action
No Current Medications
0
Referrals:
NONE,* [Family Provider, Internal Medicine]
Interventions
Interventions:
*Risk Screen - Suicide Last Done: 12/02/24 16:27
*General Assessment Last Done: 12/02/24 16:27
*Neglect/Abuse Screening Last Done: 12/03/24 09:06
*ED- Fall Risk Assessment Last Done: 12/02/24 16:27
*ED COVID-19 Vaccine History Last Done: 12/02/24 16:27
ED-Psychological Assessment Last Done: 12/03/24 09:06
Discharge Date and Time
Print Language: LATVIAN
[2024-12-02 20:20] LABS: Beta HCG Quantitative 233.97 mIU/ml
[2024-12-02 20:39] VITALS: BP 106/74
[2024-12-02 21:35] VITALS: BP 116/81
[2024-12-02] MEDS: ATIVAN 1 MG PO (21:36)
[2024-12-03 09:06] VITALS: BP 85/57
--- NOTE | 2024-12-03 09:07 | CON.MD ---
Consultation - Medical
-
Consult: positive hcg
HPI: Patient is a 29yo who presented to the ED after a 302 petition was filed by police for causing disturbances at local stores. Patient is a very poor historian and was able to provide limited information. History mostly from patient
chart. She kept saying she wanted to call her dad. She has a long history of psychotic episodes and polysubstance abuse. She declined any history to me. She says she did not know she was and has no idea when her LMP is. She was not sure if
she has regular periods or not. She declines being on any control. She says she has a 10 year old son that she delivered vaginally. She denies vaginal bleeding or abdominal pain. Per the ED, patient is going to inpatient Psych and clearance by
OB was required since she had an incidentally positive hcg on admission.
PMHx: polysubstance abuse, bipolar, ADHD, schizophrenia, Farzad's, anemia
Meds: Adderall
Surghx: denies
All: codeine, vancomycin
Socialhx: pt denies tobacco, etoh or illicit drug use, however per notes pt with history of etoh abuse and polysubstance abuse
Famhx: denies
OBHx: FT SVDx1 10yrs ago, uncomplicated her patient
Gynhx: unsure of LMP, does not know last time she saw a ELECTRICAL SIGN WIRER, denies history of STDs
O
BP 116/81
General: resting in bed
Cardio: regular
Pulm: no increased work of breathing
Abd: soft, nontender, nondistended
Labs: hcg 233.97, UDS positive opiates, amphetamines, methamphetamines, cocaine and THC
A/P: Patient is a 29yo with schizophrenia, incidentally found to have a positive hcg
- Hcg 233.97- pt states she did not know that she was . At this time, this is a of unknown location. Patient denies vaginal bleeding or abdominal pain and currently has no signs of an ectopic
- She is cleared from an OB perspective for inpatient Psych
- Recommend repeat hcg in 48hrs
- Patient aware to alert staff with any vaginal bleeding or abdominal pain
- Discussed with patient importance of follow up care with ATHLETIC EQUIPMENT CUSTODIAN once she is discharged from the inpatient Psych facility. Please provide patient with [facility] information upon discharge so she can establish care.
[2024-12-03 13:40] VITALS: BP 110/78
[2024-12-03] MEDS: VERSED 2 MG IM (13:43)
[2024-12-04 03:37] VITALS: BP 104/80
[2024-12-04 08:00] VITALS: BP 128/98
[2024-12-04] MEDS: ATIVAN 1 MG PO (08:22)
[2024-12-04] MEDS: VALIUM INJECTION 2 MG IM (10:42)
[2024-12-04] MEDS: SEROQUEL 100 MG PO ×2 (11:52→19:51)
--- NOTE | 2024-12-04 14:02 | CS.PSYCHR ---
Consult Summary - Psychiatry
-
pt seen for assessment of progress. Here on a 302 petition by police due to bizarre erratic and threatening behavior in local stores. known to police and [facility] and crisis for mutiple similar presentations in the course of her treatment for
schizophrenia as well as mixed substance use disorder
Is followed by ACT team but known to be non-adherent to a treatment regimen consisting of seroquel and substance abstinence.
Pt noted to have amphetamines, methamphetamine, cocaine, opiates and cannabis in her urine on arrival. Also noted to have postivie test, though qualitative number barely registers (233.) Ultrasound unable to see intrauterine anything. No
abdominal pain/vag bleeding pt unable to say when last period of if had any signs/symptoms of recent miscarriage.
On exam pt is insistent that she leave today, says her father is going to pick here up (had told me same thing yesterday when I was interviewing another patient.) Animated, disheveled, abruptly jumps up off stretcher to poultry picking machine tender juice cup. Denies
having schizophrenia, denies drug use. Aware of , plans to keep it, will not discuss possible father. Affect blunted, internally preoccupied. Says God wants her to go home.
Impresssion: schizophrenia, substance use disorder,
Rec: pursing placement, needs inpatient care. Psychosis is far more dangerous to her than antipsychotic meds, would resume seroquel 100 bid, use prn benzos for treatment of behavioral dyscontrol (valium 2 mg.)
== END 2024-12-04 21:12 ==
LOC: EMR 16:23
PROVIDERS: Emergency Medicine; CONSULT PHYSICIAN Obstetrics & Gynecology; EMERGENCY PHYSICIAN Emergency Medicine
DX: O99.341 Other mental disorders complicating pregnancy, first trimester (principal); F20.9 Schizophrenia, unspecified; F31.9 Bipolar disorder, unspecified; F41.9 Anxiety disorder, unspecified; Z88.5 Allergy status to narcotic agent; Z87.442 Personal history of urinary calculi; Z3A.00 Weeks of gestation of pregnancy not specified
CPT/HCPCS: 96372; 99285; 76801; 80048; 80306; 80307; 82077; 84702; 84703; 85025